=== PATIENT | male | born 1965 | race Caucasian/White ===

== ENCOUNTER 2019-04-20 21:35 | Inpatient (IN) | payer SELFPAY ==
[2019-04-20 22:00] VITALS: BMI 32.8
--- NOTE | 2019-04-20 22:00 | PDOC ---
Rapid Medical Evaluation Chief Complaint: Pain Time Seen by Provider: 04/20/19 21:55 Medical Evaluation: Allergies Allergy/AdvReac Type Severity Reaction Status Date / Time iodine Allergy Intermediate Rash Verified 03/02/16 23:06 Penicillins Allergy Intermediate Rash Verified 03/02/16 23:06 Sulfa (Sulfonamide Allergy Intermediate Rash Verified 03/02/16 23:06 Antibiotics) 04/20/19 21:56 I have performed a brief in-person evaluation of this patient. The patient presents with a chief complaint of: right elbow pain and swelling/ red and painful Pertinent physical exam findings: + redness/ streaking/ warm to touch , fever I have ordered the following: Xray elbow The patient will proceed to the ED for further evaluation. Discharge Disposition - Diagnosis Fever - Referrals - Patient Instructions - Post Discharge Activity
--- NOTE | 2019-04-20 22:54 | PDOC ---
History of Present Illness - General Chief Complaint: Wound Stated Complaint: SWOLLEN ARM Time Seen by Provider: 04/20/19 21:55 - History of Present Illness Initial Comments: 04/20/19 22:52 CHIEF COMPLAINT: elbow redness HISTORY OF PRESENT ILLNESS: 53 yo M with DMII, hx of liver and renal transplant , b/l knee replacements, septic joint, presents to ED with elbow pain x 2 days, with worsening swelling and pain today. Patient reports that he returned from [place] 5 days ago and thought he may have pulled something in the elbow while moving suitcases. He felt fatigued upon returning from vacation but thought it was due to travel. He denies any fever, chills, nausea, vomiting, or diarrhea. Patient has been on prophylactic Bactrim since his last transplant in 2016. Patient is followed by Dr. Panda (transplant hyperion administrator) at [facility] and Dr. Jonathan Roberts (PCP). PAST MEDICAL HISTORY: Denies past medical history FAMILY HISTORY: Denies SOCIAL HISTORY: Denies tobacco, alcohol, illicit drug use. SURGICAL HISTORY: Denies ALLERGIES: iodine, PCN, sulfa REVIEW OF SYSTEMS General/Constitutional: Denies fever or chills. Denies weakness, weight change. HEENT: Denies change in vision. Denies ear pain or discharge. Denies sore throat. Cardiovascular: Denies chest pain or shortness of breath. Respiratory: Denies cough, wheezing, or hemoptysis. Gastrointestinal: Denies nausea, vomiting, diarrhea or constipation. Denies rectal bleeding. Genitourinary: Denies dysuria, frequency, or change in urination. Musculoskeletal: Pain, redness, and swelling to R elbow. Skin and breasts: Denies rash or easy bruising. PHYSICAL EXAM General Appearance: Well-appearing, appropriately dressed. No apparent distress , no intoxication. HEENT: EOMI, PERRLA, normal ENT inspection, normal voice, TMs normal, pharynx normal. No conjunctival pallor. No photophobia, scleral icterus. Neck: Supple. Trachea midline. No tenderness, rigidity, carotid bruit, stridor , lymphadenopathy, or thyromegaly. Respiratory/Chest: Lungs CTAB. No shortness of breath, chest tenderness, respiratory distress, accessory muscle use. No crackles, rales, rhonchi, stridor , wheezing, dullness Cardiovascular: RRR. S1, S2. No JVD, murmur, bradycardia, tachycardia. Vascular Pulses: Dorsalis-Pedis (R): 2+, Dorsalis-Pedis (L): 2+ Gastrointestinal/Abdominal: Normal bowel sounds. Abdomen soft, non-distended. No tenderness or rebound tenderness. No organomegaly, pulsatile mass, guarding , hernia, hepatomegaly, splenomegaly. Lymphatic: No adenopathy, tenderness. Musculoskeletal/Extremities: Decreased extension of R elbow with erythema and swelling. Normal inspection. FROM of all other extremities, normal capillary refill. Pelvis Stable. No CVA tenderness. No tenderness to extremities, pedal edema, swelling, erythema or deformity. Integumentary: Appropriate color, dry, warm. No cyanosis, erythema, jaundice or rash Neurologic: visor installer II-XII intact. Fully oriented, alert. Appropriate mood/affect. Motor strength 5/5. No appreciable EOM palsy, facial droop or sensory deficit. 04/21/19 02:01 Past History - Past Medical History Allergies/Adverse Reactions: Allergies Allergy/AdvReac Type Severity Reaction Status Date / Time iodine Allergy Intermediate Rash Verified 03/02/16 23:06 Penicillins Allergy Intermediate Rash Verified 03/02/16 23:06 Sulfa (Sulfonamide Allergy Intermediate Rash Verified 03/02/16 23:06 Antibiotics) Home Medications: Ambulatory Orders Alendronate Sodium [Binosto] 70 mg PO WEEKLY 04/21/19 Aspirin [Aspirin EC] 81 mg PO DAILY 04/21/19 Calcium Citrate/Vitamin D3 [Calcium Cit-Vit D 250-200 Tab] 1 tablet PO BID 04/21 Ergocalciferol (Vitamin D2) [Vitamin D2] 50,000 unit PO WEEKLY 04/21/19 Esomeprazole Magnesium [Nexium 24Hr] 20 mg PO DAILY 04/21/19 Ferrous Sulfate 325 mg PO TID 04/21/19 Insulin Detemir [Levemir Flextouch] 17 unit SQ HS 04/21/19 Melatonin 10 mg PO PRN 04/21/19 Mycophenolate Mofetil 500 mg PO BID 04/21/19 Prednisone 5 mg PO DAILY 04/21/19 Sildenafil Citrate [Viagra] 25 mg PO PRN PRN 04/21/19 Sulfamethoxazole/Trimethoprim [Bactrim Ds -] 1 tab PO DAILY 04/21/19 Tacrolimus 2 mg PO BID 04/21/19 Tamsulosin HCl 0.4 mg PO DAILY 04/21/19 Zolpidem Tartrate [Ambien] 5 mg PO PRN PRN 04/21/19 metFORMIN HCL [Metformin HCl] 10 ml PO BID 04/21/19 Anemia: Yes Cardiac Disorders: Yes (cardiomyopathy) COPD: No Diabetes: Yes (type 2) GI Disorders: Yes (colon dysplasia) Disorders: Yes (RENAL FAILURE) HTN: Yes Kidney Stones: No (RENAL FAILURE) Liver Disease: Yes (LIVER TRANSPLANT) - Surgical History Abdominal Surgery: Yes (liver translplantX3 IN 21 WEEKS) GI Surgery: Yes ("colon removed") Orthopedic Surgery: Yes (DAI KNEE REPLACEMENT) - Immunization History Immunization Up to Date: Yes - Suicide/Smoking/Psychosocial Hx Smoking History: Never smoked Have you smoked in the past 12 months: No Information on smoking cessation initiated: No Hx Alcohol Use: No Drug/Substance Use Hx: No Substance Use Type: None *Physical Exam - Vital Signs Last Vital Signs Temp Pulse Resp BP Pulse Ox 99.2 F 101 H 17 128/95 100 04/20/19 21:58 04/20/19 21:58 04/20/19 21:58 04/20/19 21:58 04/20/19 21:58 ED Treatment Course - LABORATORY CBC & Chemistry Diagram: 04/21/19 07:25 04/21/19 07:25 Medical Decision Making - Medical Decision Making 04/21/19 01:40 53 yo M with DMII, hx of liver and renal transplant, b/l knee replacements presents to ED with elbow pain x 2 days, with worsening swelling and pain today. Ddx includes osteomyelitis, cellulitis, sepsis, septic joint, bursitis -labs -elbow x-ray admit to hospiatlist, consult ortho tomorrow. x-ray wet read negative for osteo *DC/Admit/Observation/Transfer Diagnosis at time of Disposition: Liver transplanted, Renal transplant, status post, Cellulitis of elbow - Discharge Dispostion Decision to Admit order: Yes - Referrals - Patient Instructions - Post Discharge Activity
[2019-04-20 23:09] LABS: BASO % 1.1 % (0-2.0); EOS % 2.4 % (0-4.5); HEMATOCRIT 37.4 % (35.4-49); HEMOGLOBIN 12.6 GM/dL (11.7-16.9); LYMPH % 11.3 % (8-40); MCH 29.6 pg (25.7-33.7); MCHC 33.6 g/dl (32.0-35.9); MEAN CELL VOLUME 88.1 fl (80-96); MONO % 9.3 % (3.8-10.2); NEUT % 75.9 % (42.8-82.8); PLATELET COUNT 165 K/MM3 (134-434); RBC 4.25 M/mm3 (4.00-5.60); RDW 15.5 % (11.9-15.9); WHITE BLOOD COUNT 8.4 K/mm3 (4.0-10.0)
[2019-04-20 23:31] LABS: ALBUMIN 3.2 g/dl (3.4-5.0); BILIRUBIN,TOTAL 0.9 mg/dL (0.2-1); BLOOD UREA NITROGEN 21.9 mg/dL (7-18); CALCIUM 8.5 mg/dL (8.5-10.1); CREATININE 1.4 mg/dL (0.55-1.3); POTASSIUM 4.6 mmol/L (3.5-5.1); TOT PROT 7.6 g/dl (6.4-8.2)
[2019-04-21 01:19] LABS: INR 1.15 (0.83-1.09); PROTHROMBIN TIME (PATIENT) 13.6 SEC (9.7-13.0)
--- NOTE | 2019-04-21 01:25 | PDOC ---
*Physical Exam - Vital Signs Last Vital Signs Temp Pulse Resp BP Pulse Ox 99.2 F 101 H 17 128/95 100 04/20/19 21:58 04/20/19 21:58 04/20/19 21:58 04/20/19 21:58 04/20/19 21:58 ED Treatment Course - LABORATORY CBC & Chemistry Diagram: 04/20/19 22:50 04/20/19 22:50 - ADDITIONAL ORDERS Additional order review: Laboratory Results 04/21/19 04/20/19 00:35 22:50 PT with INR 13.60 H INR 1.15 H Sodium 138 Potassium 4.6 Chloride 104 Carbon Dioxide 25 Anion Gap 9 BUN 21.9 H Creatinine 1.4 H Est GFR (CKD-EPI)AfAm 65.55 Est GFR (CKD-EPI)NonAf 56.56 Random Glucose 157 H Calcium 8.5 Total Bilirubin 0.9 AST 29 ALT 48 Alkaline Phosphatase 337 H Total Protein 7.6 Albumin 3.2 L 04/20/19 22:50 RBC 4.25 MCV 88.1 MCHC 33.6 RDW 15.5 D MPV 10.0 Neutrophils % 75.9 D Lymphocytes % 11.3 D Monocytes % 9.3 Eosinophils % 2.4 Basophils % 1.1 Medical Decision Making - Medical Decision Making 04/21/19 01:25 Case reviewed, agree with assessment and plan *DC/Admit/Observation/Transfer Diagnosis at time of Disposition: Fever - Referrals - Patient Instructions - Post Discharge Activity
[2019-04-21] MEDS ORDERED: VANCOMYCIN 1 GM in D5W (PRE-DOCKED) 1,000 MG/250 ML IVPB ONE (01:31)
[2019-04-21] MEDS ORDERED: CEFEPIME HCL/D5W 2 GM/50 ML BAG IVPB ONE (01:33)
[2019-04-21] MEDS ORDERED: VANCOMYCIN 1 GRAM (PRE-DOCKED) 1,000 MG/250 ML BAG IVPB ONE (01:54)
[2019-04-21] MEDS ORDERED: morphine CARPU-JECT 4 MG/1 ML DISP.SYRIN IVPUSH ONE ×2 (02:08→07:29)
[2019-04-21] MEDS ORDERED: morphine SULFATE 4 MG/ML VIAL ONE ×2 (02:11→07:36)
--- NOTE | 2019-04-21 03:28 | HP ---
CHIEF COMPLAINT: Cellulitis PCP: HISTORY OF PRESENT ILLNESS: 53M with PMH significant for liver transplant (2x) and renal transplant, b/l knee replacement, anemia, s/p colon removal, who presents today with erythema and soreness of his elbow since Wednesday. He has pain with flexion and extension of his elbow joint, with the erythema spreading up his arm on the extensor surface. He notes that he returned from a 9 day trip from [place] on Wednesday night, at which point he was feeding his cats and a cat may have potentially scratched him. He did not notice any scratches or bleeding at that time. He has not had any swelling of his elbow, no drainage of the infected area, no weakness of the arm. 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 He denies any bites or scratches on his trip. Reports no fevers, no chest pain, no SOB, no myalgias, no swelling of other joints. 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 Mother: bladder cancer Allergies iodine Allergy (Intermediate, Verified 03/02/16 23:06) Rash Penicillins Allergy (Intermediate, Verified 03/02/16 23:06) Rash Sulfa (Sulfonamide Antibiotics) Allergy (Intermediate, Verified 03/02/16 23:06) Rash HOME MEDICATIONS: Home Medications Medication Instructions Recorded Alendronate Sodium [Binosto] 70 mg PO DAILY 04/21/19 Aspirin [Aspirin EC] 81 mg PO DAILY 04/21/19 Calcium Citrate/Vitamin D3 PO BID 04/21/19 [Calcium Cit-Vit D 250-200 Tab] Ergocalciferol (Vitamin D2) 50,000 unit PO WEEKLY 04/21/19 [Vitamin D2] Ferrous Sulfate 325 mg PO TID 04/21/19 Insulin Detemir [Levemir Flextouch] 17 unit SQ HS 04/21/19 Mycophenolate Mofetil 500 mg PO BID 04/21/19 Prednisone 5 mg PO DAILY 04/21/19 Sulfamethoxazole/Trimethoprim 1 tab PO DAILY 04/21/19 [Bactrim Ds -] Tacrolimus 2 mg PO DAILY 04/21/19 Tamsulosin HCl 0.4 mg PO DAILY 04/21/19 REVIEW OF SYSTEMS CONSTITUTIONAL: loss of appetite (x3 days) Absent: fever, chills, diaphoresis, generalized weakness, malaise, CARDIOVASCULAR: Absent: chest pain, syncope, palpitations, irregular heart rate RESPIRATORY: Absent: cough, shortness of breath, dyspnea with exertion GASTROINTESTINAL: Absent: abdominal pain, abdominal distension, nausea, vomiting, diarrhea, constipation, melena, hematochezia GENITOURINARY: Absent: dysuria, frequency, urgency, hesitancy, hematuria MUSCULOSKELETAL: joint swelling, Absent: myalgia, arthralgia, back pain, neck pain SKIN: Absent: rash, itching, pallor PHYSICAL EXAMINATION Vital Signs - 24 hr 04/20/19 04/21/19 21:58 02:15 Temperature 99.2 F 98.8 F Pulse Rate 101 H Pulse Rate [ 90 Left Radial] Respiratory 17 20 Rate Blood Pressure 128/95 Blood Pressure 113/83 [Left Arm] O2 Sat by Pulse 100 95 Oximetry (%) GENERAL: Awake, alert, and fully oriented, in no acute distress. HEAD: Normal with no signs of trauma. EYES: Pupils equal, round and reactive to light, extraocular movements intact, sclera anicteric, conjunctiva clear. No lid lag. EARS, NOSE, THROAT: Ears normal, nares patent, oropharynx clear without exudates. Moist mucous membranes. NECK: Normal range of motion, supple without lymphadenopathy, JVD, or masses. LUNGS: Breath sounds equal, clear to auscultation bilaterally. No wheezes, and no crackles. No accessory muscle use. HEART: Regular rate and rhythm, normal S1 and S2 without murmur, rub or gallop. ABDOMEN: Soft, nontender, not distended, normoactive bowel sounds, no guarding, no rebound, no masses. Ostomy bag in place. MUSCULOSKELETAL: Normal range of motion in LUE, LLE,RLE. Right elbow has limited extension and flexion due to pain. Tenderness on palpation of right elbow. No bony deformities or tenderness in other joints. SKIN: No vesicle, bullae, or rash observed. Only erythematous, non-raised lesion on right elbow spreading up arm. Laboratory Results - last 24 hr 04/20/19 04/20/19 04/21/19 22:50 22:50 00:35 WBC 8.4 RBC 4.25 Hgb 12.6 Hct 37.4 D MCV 88.1 MCH 29.6 D MCHC 33.6 RDW 15.5 D Plt Count 165 D MPV 10.0 Absolute Neuts (auto) 6.4 Neutrophils % 75.9 D Lymphocytes % 11.3 D Monocytes % 9.3 Eosinophils % 2.4 Basophils % 1.1 Nucleated RBC % 0 PT with INR INR Sodium 138 Potassium 4.6 Chloride 104 Carbon Dioxide 25 Anion Gap 9 BUN 21.9 H Creatinine 1.4 H Est GFR (CKD-EPI)AfAm 65.55 Est GFR (CKD-EPI)NonAf 56.56 Random Glucose 157 H Lactic Acid 1.0 Calcium 8.5 Total Bilirubin 0.9 AST 29 ALT 48 Alkaline Phosphatase 337 H Total Protein 7.6 Albumin 3.2 L 04/21/19 00:35 WBC RBC Hgb Hct MCV MCH MCHC RDW Plt Count MPV Absolute Neuts (auto) Neutrophils % Lymphocytes % Monocytes % Eosinophils % Basophils % Nucleated RBC % PT with INR 13.60 H INR 1.15 H Sodium Potassium Chloride Carbon Dioxide Anion Gap BUN Creatinine Est GFR (CKD-EPI)AfAm Est GFR (CKD-EPI)NonAf Random Glucose Lactic Acid Calcium Total Bilirubin AST ALT Alkaline Phosphatase Total Protein Albumin ASSESSMENT/PLAN: 53M with PMH significant for liver transplant (2x) and renal transplant, b/l knee replacement, anemia, s/p colon removal who presents today for cellulitis of his right elbow. 1) Cellulitis Clindamycin 600 mg IV Q8 ID Consult Follow up CT right elbow Uric acid level to rule out gout (can present like this in renal transplant patients) Ortho Consult to rule out septic joint 2)S/P Transplant Continue home medications for transplant 3) Hypoalbumin Likely due to poor oral intake and inflammation. 4) BPH Continue home medicines DVT Prophylaxis: Heparin 5000 unit SQ Q8. F:no fluids E: Trend BMP N:Diabetic Diet Admit: Admit to medicine floors. Problem List - Problem (1) Cellulitis of elbow Code(s): L03.119 - CELLULITIS OF UNSPECIFIED PART OF LIMB (2) Liver transplanted Code(s): Z94.4 - LIVER TRANSPLANT STATUS (3) Renal transplant, status post Code(s): Z94.0 - KIDNEY TRANSPLANT STATUS Visit type - Emergency Visit Emergency Visit: Yes ED Registration Date: 04/21/19 Care time: The patient presented to the Emergency Department on the above date and was hospitalized for further evaluation of their emergent condition. - New Patient This patient is new to me today: Yes Date on this admission: 04/21/19 - Critical Care Critical Care patient: No ATTENDING PHYSICIAN STATEMENT I saw and evaluated the patient. I reviewed the resident's note and discussed the case with the resident. I agree with the resident's findings and plan as documented. SUBJECTIVE: OBJECTIVE: ASSESSMENT AND PLAN:
--- NOTE | 2019-04-21 03:50 | PN ---
Teaching Attending Note Name of Resident: Lauro Tomas ATTENDING PHYSICIAN STATEMENT I saw and evaluated the patient. I reviewed the resident's note and discussed the case with the resident. I agree with the resident's findings and plan as documented. SUBJECTIVE: Patient is a 53 year old man with PMH of NIDDM, Penicillin allergy, Liver and renal transplant, Bilateral knee replacements and Septic joint, presents to ER with right elbow pain for 2 days - with worsening swelling and pain today. Patient reports that he returned from [place] 5 days ago and thought he may have pulled something in the elbow while moving suitcases. Also may have been scratched by his cat. He felt fatigued upon returning from vacation but thought it was due to travel. He denies any fever, chills, nausea, vomiting, or diarrhea. Patient has been on prophylactic Bactrim since his last transplant in 2015. Patient is followed by Dr. Panda (transplant change advisor) at [facility] and Dr. Jonathan Roberts (PCP). OBJECTIVE: Alert Vital Signs Period Temp Pulse Resp BP Sys/Valdes Pulse Ox Last 24 Hr 98.8 F-99.2 F 90-101 17-20 113-128/83-95 95-100 HEENT: No Jaundice, eye redness or discharge, PERRLA, EOMI. Normocephalic, atraumatic. External ears are normal and hearing is grossly intact. No nasal discharge. Neck: Supple, nontender. No palpable adenopathy or thyromegaly. No JVD Chest: Good effort. Clear to auscultation and percussion. Heart: Regular. No S3, rub or murmur Abdomen: Not distended, soft, nontender and no HSM. No rebound or guarding. Normal bowel sounds. Ext: Peripheral pulses intact. No leg edema. Erythema in posterior aspect of right elbow; tender with mild swelling and limited ROM. Skin: Warm and dry. No petechiae, rash or ecchymosis. Neuro: Alert. Oriented x3. CN 2-12 grossly intact. Sensation grossly intact in all four extremities and DTR are symmetric. Psych: Appropriate mood and affect. Good insight. Current Medications Generic Name Dose Route Start Last Admin Trade Name Freq PRN Reason Stop Dose Admin Heparin Sodium (Porcine) 5,000 unit 04/21/19 10:00 Heparin - SQ Q8H-IV JERO Clindamycin Phosphate 600 mg in 50 mls @ 100 mls/hr 04/21/19 10:00 Cleocin 600 Mg Premix Ivpb - IVPB Q8H-IV [facility] Protocol Insulin Aspart 1 vial 04/21/19 07:00 Novolog Vial Sliding Scale - SQ ACHS [facility] Protocol Home Medications Medication Instructions Recorded Alendronate Sodium [Binosto] 70 mg PO DAILY 04/21/19 Aspirin [Aspirin EC] 81 mg PO DAILY 04/21/19 Calcium Citrate/Vitamin D3 PO BID 04/21/19 [Calcium Cit-Vit D 250-200 Tab] Ergocalciferol (Vitamin D2) 50,000 unit PO WEEKLY 04/21/19 [Vitamin D2] Ferrous Sulfate 325 mg PO TID 04/21/19 Insulin Detemir [Levemir Flextouch] 17 unit SQ HS 04/21/19 Mycophenolate Mofetil 500 mg PO BID 04/21/19 Prednisone 5 mg PO DAILY 04/21/19 Sulfamethoxazole/Trimethoprim 1 tab PO DAILY 04/21/19 [Bactrim Ds -] Tacrolimus 2 mg PO DAILY 04/21/19 Tamsulosin HCl 0.4 mg PO DAILY 04/21/19 Abnormal Lab Results 04/20/19 04/21/19 22:50 00:35 PT with INR 13.60 H INR 1.15 H BUN 21.9 H Creatinine 1.4 H Random Glucose 157 H Alkaline Phosphatase 337 H Albumin 3.2 L ASSESSMENT AND PLAN: 1. Right elbow cellulitis - Will treat with IV clindamycin for cellulitis, but also get CT of the elbow to assess for excessive fluid collection for possible arthrocentesis. Check uric acid and hydrate gently. Consult ID and Orthopedics. 2. Hypoalbuminemia - Possibly due to combined effects of malnutrition and inflammation associated with comorbid chronic conditions. Will ensure adequate dietary protein intake and also consult rigging man. 3. DM For now, we will hold the home diabetes drugs and implement sliding scale insulin regimen. Provide comprehensive diabetes care with patient teaching and counseling about the importance of adherence to prescribed diabetes regimen, euglycemia, eye care and foot care. 4. Kidney and Liver transplant - Continue anti-rejection medications, monitor BMP and LFTs. Avoid nephrotoxic agents such as NSAIDS, aminoglycosides, contrast dyes and certain Alternative medicine products. Consult nephrology and GI. 5. Obesity Counseled on the risks associated with obesity. Will provide patient all the necessary assistance, counseling and positive reinforcement to facilitate weight loss. Consult rigging man. 6. Hypertension - Restart suitable outpatient antihypertensive drugs when clinically appropriate. Revise regimen to ensure good BP control. Nonpharmacologic measures to control hypertension like weight loss, salt restriction and exercise discussed. 7. DVT prophylaxis - Heparin 5000u sq tid. 8. Advance directives - Full code
[2019-04-21] MEDS ORDERED: CEFEPIME 2 GM/100 ML BAG IVPB ONE (04:38)
[2019-04-21] MEDS: INSULIN SLIDING SCALE (NOVOLOG) 1 VIAL SQ SCH ×4 (07:11→23:04)
[2019-04-21] MEDS ORDERED: INSULIN (NOVOLOG) ASPART 100 UNITS/ML 10ML VIAL ONE (07:13)
[2019-04-21] MEDS ORDERED: ASPIRIN COATED 81 MG TABLET.EC ONE (07:36)
[2019-04-21] MEDS ORDERED: SULFAMETHOXAZOLE/TRIMETHOPRIM 800MG/160MG D.S. TABLET ONE (07:37)
[2019-04-21] MEDS ORDERED: TAMSULOSIN HCL 0.4 MG CAP ONE (07:37)
[2019-04-21] MEDS ORDERED: FERROUS SO4 325 MG TABLET (FP) ONE (07:37)
[2019-04-21] MEDS ORDERED: HEPARIN NA (PORCINE) 5,000 UNITS/ML 1ML VIAL ONE (07:37)
[2019-04-21] MEDS ORDERED: CLINDAMYCIN 600MG PREMIX IVPB 600 MG/50 ML BAG IVPB ONE (07:38)
[2019-04-21] MEDS: TAMSULOSIN HCL 0.4 MG CAP PO SCH (07:56)
[2019-04-21] MEDS: FERROUS SO4 325 MG TABLET (FP) PO SCH ×3 (07:56→17:53)
[2019-04-21 08:06] LABS: BASO % 0.6 % (0-2.0); EOS % 2.3 % (0-4.5); HEMATOCRIT 34.4 % (35.4-49); HEMOGLOBIN 11.5 GM/dL (11.7-16.9); LYMPH % 18.2 % (8-40); MCH 29.5 pg (25.7-33.7); MCHC 33.4 g/dl (32.0-35.9); MEAN CELL VOLUME 88.4 fl (80-96); MEAN PLT VOLUME 10.3 fl (7.5-11.1); MONO % 12.8 % (3.8-10.2); NEUT % 66.1 % (42.8-82.8); PLATELET COUNT 156 K/MM3 (134-434); RBC 3.89 M/mm3 (4.00-5.60); RDW 15.1 % (11.9-15.9)
[2019-04-21 08:39] LABS: ALBUMIN 2.9 g/dl (3.4-5.0); BILIRUBIN,TOTAL 0.7 mg/dL (0.2-1); BLOOD UREA NITROGEN 21.4 mg/dL (7-18); CALCIUM 8.3 mg/dL (8.5-10.1); CREATININE 1.4 mg/dL (0.55-1.3); PHOSPHOROUS 3.1 mg/dL (2.5-4.9); TOT PROT 7.1 g/dl (6.4-8.2); URIC ACID 8.7 mg/dL (2.6-7.2)
[2019-04-21] MEDS: ASPIRIN COATED 81 MG TABLET.EC PO SCH (09:17)
[2019-04-21] MEDS: HEPARIN NA (PORCINE) 5,000 UNITS/ML 1ML VIAL SQ SCH ×2 (09:17→17:53)
[2019-04-21] MEDS: predniSONE 5 MG TABLET (UD) PO SCH (09:17)
[2019-04-21] MEDS: TACROLIMUS ANHYDROUS 1 MG CAPSULE PO SCH ×2 (09:52→23:01)
[2019-04-21] MEDS: MYCOPHENOLATE MOFETIL 500 MG TABLET PO SCH ×2 (09:53→23:02)
--- NOTE | 2019-04-21 09:58 | PN ---
Physical Exam: SUBJECTIVE: Patient seen and examined. C/o of worsening pain and swelling R elbow. Has had cat bite on his back several years ago but unsure if he was bitten or scratched. Pt also reports a hx of gout. No fevers, no chills. Pt has his transplant doctor as Dr Mendel Acuna at [phone] (liver team) but does not want to go [facility] ED at this time. OBJECTIVE: Vital Signs Period Temp Pulse Resp BP Sys/Valdes Pulse Ox Last 24 Hr 97.7 F-99.2 F 78-101 17-20 113-128/80-95 95-100 Vital Signs Temp 98.0 F 04/21/19 15:18 Pulse 84 04/21/19 15:18 Resp 18 04/21/19 15:18 BP 113/77 04/21/19 15:18 Pulse Ox 99 04/21/19 15:18 Intake & Output 04/20/19 04/21/19 04/21/19 23:59 11:59 23:59 Weight 95.254 kg Other: Voiding Method Urinal Height 1.7 m Body Mass Index (BMI) 32.8 Weight Measurement Method Est/Stated by Patient GENERAL: The patient is obese, awake, alert, and fully oriented, in no acute distress. EYES: PERRL, extraocular movements intact ENT: moist mucous membranes. LUNGS: Breath sounds equal, clear to auscultation bilaterally, no wheezes, no crackles HEART: Regular rate and rhythm, S1, S2 without murmur, rub or gallop. ABDOMEN: Soft, nontender, obese, normoactive bowel sounds EXTREMITIES: 2+ pulses, warm, well-perfused, no edema. RUE with redness and elbow swelling measuring about [id number] with spread to medial aspect, with redness, warmth and swelling. NEUROLOGICAL: Cranial nerves II through XII grossly intact. Normal speech, gait not observed. CBC, BMP 04/21/19 07:25 04/21/19 07:25 Laboratory Results - last 24 hr 04/20/19 04/20/19 04/21/19 22:50 22:50 00:35 WBC 8.4 RBC 4.25 Hgb 12.6 Hct 37.4 D MCV 88.1 MCH 29.6 D MCHC 33.6 RDW 15.5 D Plt Count 165 D MPV 10.0 Absolute Neuts (auto) 6.4 Neutrophils % 75.9 D Lymphocytes % 11.3 D Monocytes % 9.3 Eosinophils % 2.4 Basophils % 1.1 Nucleated RBC % 0 PT with INR INR Sodium 138 Potassium 4.6 Chloride 104 Carbon Dioxide 25 Anion Gap 9 BUN 21.9 H Creatinine 1.4 H Est GFR (CKD-EPI)AfAm 65.55 Est GFR (CKD-EPI)NonAf 56.56 POC Glucometer Random Glucose 157 H Lactic Acid 1.0 Uric Acid Calcium 8.5 Phosphorus Magnesium Total Bilirubin 0.9 AST 29 ALT 48 Alkaline Phosphatase 337 H Total Protein 7.6 Albumin 3.2 L 04/21/19 04/21/19 04/21/19 00:35 07:09 07:25 WBC 8.0 RBC 3.89 L Hgb 11.5 L Hct 34.4 L MCV 88.4 MCH 29.5 MCHC 33.4 RDW 15.1 Plt Count 156 MPV 10.3 Absolute Neuts (auto) 5.3 Neutrophils % 66.1 Lymphocytes % 18.2 D Monocytes % 12.8 H Eosinophils % 2.3 Basophils % 0.6 Nucleated RBC % 0 PT with INR 13.60 H INR 1.15 H Sodium Potassium Chloride Carbon Dioxide Anion Gap BUN Creatinine Est GFR (CKD-EPI)AfAm Est GFR (CKD-EPI)NonAf POC Glucometer 212 Random Glucose Lactic Acid Uric Acid Calcium Phosphorus Magnesium Total Bilirubin AST ALT Alkaline Phosphatase Total Protein Albumin 04/21/19 07:25 WBC RBC Hgb Hct MCV MCH MCHC RDW Plt Count MPV Absolute Neuts (auto) Neutrophils % Lymphocytes % Monocytes % Eosinophils % Basophils % Nucleated RBC % PT with INR INR Sodium 135 L Potassium 4.0 Chloride 104 Carbon Dioxide 22 Anion Gap 9 BUN 21.4 H Creatinine 1.4 H Est GFR (CKD-EPI)AfAm 65.55 Est GFR (CKD-EPI)NonAf 56.56 POC Glucometer Random Glucose 224 H Lactic Acid Uric Acid 8.7 H Calcium 8.3 L Phosphorus 3.1 Magnesium 2.0 Total Bilirubin 0.7 AST 13 L ALT 38 Alkaline Phosphatase 304 H Total Protein 7.1 Albumin 2.9 L Active Medications Generic Name Dose Route Start Last Admin Trade Name Freq PRN Reason Stop Dose Admin Aspirin 81 mg 04/21/19 10:00 04/21/19 09:17 Ecotrin - PO 81 mg DAILY [facility] Administration Ferrous Sulfate 325 mg 04/21/19 08:00 04/21/19 07:56 Feosol - PO 325 mg TIDCM [facility] Administration Heparin Sodium (Porcine) 5,000 unit 04/21/19 10:00 04/21/19 09:17 Heparin - SQ 5,000 unit Q8H-IV [facility] Administration Clindamycin Phosphate 600 mg in 50 mls @ 100 mls/hr 04/21/19 10:00 04/21/19 09:17 Cleocin 600 Mg Premix Ivpb - IVPB 100 mls/hr Q8H-IV [facility] Administration Protocol Insulin Aspart 1 vial 04/21/19 07:00 04/21/19 07:11 Novolog Vial Sliding Scale - SQ 4 unit ACHS [facility] Administration Protocol Mycophenolate Mofetil 500 mg 04/21/19 10:00 04/21/19 09:53 Cellcept - PO 500 mg BID [facility] Administration Prednisone 5 mg 04/21/19 10:00 04/21/19 09:17 Deltasone - PO 5 mg DAILY [facility] Administration Tacrolimus 2 mg 04/21/19 10:00 04/21/19 09:52 Prograf PO 2 mg BID [facility] Administration Tamsulosin HCl 0.4 mg 04/21/19 08:30 04/21/19 07:56 Flomax - PO Not Given DAILY@0830 [facility] Ambulatory Orders Alendronate Sodium [Binosto] 70 mg PO WEEKLY 04/21/19 Aspirin [Aspirin EC] 81 mg PO DAILY 04/21/19 Calcium Citrate/Vitamin D3 [Calcium Cit-Vit D 250-200 Tab] 1 tablet PO BID 04/21 Ergocalciferol (Vitamin D2) [Vitamin D2] 50,000 unit PO WEEKLY 04/21/19 Esomeprazole Magnesium [Nexium 24Hr] 20 mg PO DAILY 04/21/19 Ferrous Sulfate 325 mg PO TID 04/21/19 Insulin Detemir [Levemir Flextouch] 17 unit SQ HS 04/21/19 Melatonin 10 mg PO PRN 04/21/19 Mycophenolate Mofetil 500 mg PO BID 04/21/19 Prednisone 5 mg PO DAILY 04/21/19 Sildenafil Citrate [Viagra] 25 mg PO PRN PRN 04/21/19 Sulfamethoxazole/Trimethoprim [Bactrim Ds -] 1 tab PO DAILY 04/21/19 Tacrolimus 2 mg PO BID 04/21/19 Tamsulosin HCl 0.4 mg PO DAILY 04/21/19 Zolpidem Tartrate [Ambien] 5 mg PO PRN PRN 04/21/19 metFORMIN HCL [Metformin HCl] 10 ml PO BID 04/21/19 Current Medications Aspirin (Ecotrin -) 81 mg PO DAILY [facility] Last Admin: 04/21/19 09:17 Dose: 81 mg Ferrous Sulfate (Feosol -) 325 mg PO TIDCM [facility] Last Admin: 04/21/19 13:47 Dose: 325 mg Heparin Sodium (Porcine) (Heparin -) 5,000 unit SQ Q8H-IV [facility] Last Admin: 04/21/19 09:17 Dose: 5,000 unit Sodium Chloride (Normal Saline -) 1,000 mls @ 100 mls/hr IV ASDIR [facility] Stop: 04/22/19 07:00 Last Admin: 04/21/19 13:47 Dose: 100 mls/hr Vancomycin HCl (Vancomycin (Pre-Docked)) 1,000 mg in 250 mls @ 166.667 mls/hr IVPB Q24H [facility]; Protocol Ceftriaxone Sodium 2 gm/ (Dextrose) 100 mls @ 100 mls/hr IVPB DAILY [facility]; Protocol Insulin Aspart (Novolog Vial Sliding Scale -) 1 vial SQ ACHS [facility]; Protocol Last Admin: 04/21/19 15:13 Dose: Not Given Mycophenolate Mofetil (Cellcept -) 500 mg PO BID [facility] Last Admin: 04/21/19 09:53 Dose: 500 mg Oxycodone HCl (Roxicodone -) 2.5 mg PO Q6H PRN PRN Reason: PAIN LEVEL 6-10 Prednisone (Deltasone -) 5 mg PO DAILY [facility] Last Admin: 04/21/19 09:17 Dose: 5 mg Tacrolimus (Prograf) 2 mg PO BID [facility] Last Admin: 04/21/19 09:52 Dose: 2 mg Tamsulosin HCl (Flomax -) 0.4 mg PO DAILY@0830 [facility] Last Admin: 04/21/19 07:56 Dose: Not Given ASSESSMENT/PLAN: Pt is a 53M with PMH significant for liver transplant (2x) and renal transplant , b/l knee replacement, anemia, s/p colon removal, gout, DM, Joint replacement, who presents today with erythema and soreness of his elbow since Wednesday. He has pain with flexion and extension of his elbow joint, with the erythema spreading up his arm on the extensor surface. 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) Avoid hepatotoxic meds Cont immunosuppressive tx #Renal Insuff (CKD Stage III 2/2 chronic nephrolithiasis w/obstructive disease; follows Hospice/Home Health Aide closely at [place]), Dr 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 - New Patient This patient is new to me today: Yes Date on this admission: 04/21/19 - Critical Care Critical Care patient: No - Discharge Referral Referred to [facility] Med P.C.: No ATTENDING PHYSICIAN STATEMENT I saw and evaluated the patient. I reviewed the resident's note and discussed the case with the resident. I agree with the resident's findings and plan as documented. SUBJECTIVE: OBJECTIVE: ASSESSMENT AND PLAN:
[2019-04-21] MEDS ORDERED: CLINDAMYCIN 600MG PREMIX IVPB 600 MG/50 ML BAG IVPB SCH (10:00)
[2019-04-21] MEDS ORDERED: PATIENT'S OWN MEDICATION (NON-FORMULARY) (Alendronate Sodium [Binosto] 70 MG) PO SCH (10:00)
[2019-04-21] MEDS ORDERED: SULFAMETHOXAZOLE/TRIMETHOPRIM 800MG/160MG D.S. TABLET PO SCH (10:00)
--- NOTE | 2019-04-21 11:55 | CONSULT ---
Consult - text type - Consultation Consultation Note: Renal consult for renal transplant This is a 53 year old gentleman with history of renal transplant, liver transplant who presented with erytheimia and swelling of his elbow. Pt had intiial liver transplant in 1992 after he developed sclerosing cholangitis, he had 3 seperate transplants that year. In 2016 he had a kidney/liver transplant. Baseline Cr as per patient is ~1. Was recently on vacation in [place]. Had elbow swelling for 3-4 days. Had fever at home. No tenderness over transplant kidney site. No rash. Denies any NSAID use at home. No sob, chest pain, fever or chills. PMHx: PCN Family Hx: NC Social Hx: no T/A/D ROS: as per HPI Home Medications Medication Instructions Recorded Alendronate Sodium [Binosto] 70 mg PO DAILY 04/21/19 Aspirin [Aspirin EC] 81 mg PO DAILY 04/21/19 Calcium Citrate/Vitamin D3 PO BID 04/21/19 [Calcium Cit-Vit D 250-200 Tab] Ergocalciferol (Vitamin D2) 50,000 unit PO WEEKLY 04/21/19 [Vitamin D2] Ferrous Sulfate 325 mg PO TID 04/21/19 Insulin Detemir [Levemir Flextouch] 17 unit SQ HS 04/21/19 Mycophenolate Mofetil 500 mg PO BID 04/21/19 Prednisone 5 mg PO DAILY 04/21/19 Sulfamethoxazole/Trimethoprim 1 tab PO DAILY 04/21/19 [Bactrim Ds -] Tacrolimus 2 mg PO DAILY 04/21/19 Tamsulosin HCl 0.4 mg PO DAILY 04/21/19 Vital Signs Temperature 97.7 F 04/21/19 05:21 Pulse Rate 78 04/21/19 09:12 Respiratory Rate 17 04/21/19 09:12 Blood Pressure 116/80 04/21/19 09:12 O2 Sat by Pulse Oximetry (%) 99 04/21/19 09:14 Intake & Output 04/18/19 04/19/19 04/20/19 04/21/19 23:59 23:59 23:59 23:59 Weight 95.254 kg NAD awake and alert neck supple, no JVD RRR, no M/R CTA, no rales or wheeze soft NT/ND no LE edema, clubbing or cyanosis + erythema and warmth of right elbow no tenderness over transplanted kidney CBC, BMP 04/21/19 07:25 04/21/19 07:25 Current Medications Aspirin (Ecotrin -) 81 mg PO DAILY [facility] Last Admin: 04/21/19 09:17 Dose: 81 mg Ferrous Sulfate (Feosol -) 325 mg PO TIDCM [facility] Last Admin: 04/21/19 07:56 Dose: 325 mg Heparin Sodium (Porcine) (Heparin -) 5,000 unit SQ Q8H-IV [facility] Last Admin: 04/21/19 09:17 Dose: 5,000 unit Clindamycin Phosphate (Cleocin 600 Mg Premix Ivpb -) 600 mg in 50 mls @ 100 mls /hr IVPB Q8H-IV [facility]; Protocol Last Admin: 04/21/19 09:17 Dose: 100 mls/hr Insulin Aspart (Novolog Vial Sliding Scale -) 1 vial SQ ACHS [facility]; Protocol Last Admin: 04/21/19 07:11 Dose: 4 unit Mycophenolate Mofetil (Cellcept -) 500 mg PO BID [facility] Last Admin: 04/21/19 09:53 Dose: 500 mg Prednisone (Deltasone -) 5 mg PO DAILY [facility] Last Admin: 04/21/19 09:17 Dose: 5 mg Tacrolimus (Prograf) 2 mg PO BID [facility] Last Admin: 04/21/19 09:52 Dose: 2 mg Tamsulosin HCl (Flomax -) 0.4 mg PO DAILY@0830 [facility] Last Admin: 04/21/19 07:56 Dose: Not Given 53 year old gentleman with history of renal transplant, liver transplant who presented with erytheimia and swelling of his elbow. #LEVI in transplanted kidney #Renal Transplant #Liver transplant #Cellulitis of elbow Likely etiology of rise in serum Cr is volume depletion in setting of strenuous physical activity and concurrent infection. Would start NS at 100cc per hour x 12-24 hours Continue Tacromlius, Cellcept, and prendione at home dosages Check Prograf level in AM. 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 Guerra ([phone]) to otbtain baseline numbers continue Abx as per primary/ID Ct showed no evidence of septic joint Thank you Fred Lara DO
[2019-04-21] MEDS ORDERED: SODIUM CHLORIDE 1,000 ML IV SCH (12:45)
--- NOTE | 2019-04-21 14:57 | PN ---
Progress Note (short form) - Note Progress Note: ID CONSULT DICTATED ? ACUTE FLARE GOUTY ARTHRITIS ? CELLULITIS/ OLECRANNON BURSITIS S/P SOLID ORGAN TRANSPLANT 2016 PCN ALLERGY AZOTEMIA PENDING C/S EMPIRIC VANCOMYCIN/ CEFTRIAXONE ORTHO EVALUATION
[2019-04-21] MEDS ORDERED: CEFTRIAXONE 2 GM-D5W BAG 2 GM/50 ML BAG IVPB SCH (15:00)
[2019-04-21] MEDS ORDERED: CEFTRIAXONE 2 GM/100 ML BAG IVPB ONE (15:12)
--- NOTE | 2019-04-21 16:20 | CON.ORTH ---
Consult Consult Specialty:: Orthopedics Reason for Consultation:: Right elbow swelling r/o septic joint - History of Present Illness Chief Complaint: Right elbow pain and swelling History of Present Illness: This is a 53 yo male with PMHx of liver and renal transplants, B/L knee replacements, and previous septic joint (right knee 2014) who presented to ED last night with right elbow pain and swelling x 2 days after returning from a trip to [place]. He does not remember sustaining any open wounds in this area but does state he has a cat at home that often scratches him. Patient also noted associated redness spanning his forearm which has since improved since admission. Has some pain with AROM but full PROM. Patient has been started on IV antibiotics. He denies any fever, chills, drainage or weakness. - History Source History Provided By: Patient Limitations to Obtaining History: No Limitations - Past Medical History Cardio/Vascular: Yes: Other (Cardiomyopathy) Hepatobiliary: Yes: Other (Hepatic artery thrombus, Sclerosing Cholagitis s/p liver transplant 20 years ago) Renal/: Yes: Renal Inusuff (CKD Stage III 2/2 chronic nephrolithiasis w/ obstructive disease; follows Manager Ob closely at [place]), Renal Calculi (s/p stenting and lithotripsy) Rheumatology: Yes: Gout Endocrine: Yes: Diabetes Mellitus - Past Surgical History Past Surgical History: Yes: Joint Replacement (knee), Stent (ureteral for obstructive renal calculi) - Alcohol/Substance Use Hx Alcohol Use: No - Smoking History Smoking history: Never smoked Have you smoked in the past 12 months: No - Social History Usual Living Arrangement: With Spouse ADL: Independent Home Medications - Allergies Allergies/Adverse Reactions: Allergies Allergy/AdvReac Type Severity Reaction Status Date / Time iodine Allergy Intermediate Rash Verified 03/02/16 23:06 Penicillins Allergy Intermediate Rash Verified 03/02/16 23:06 Sulfa (Sulfonamide Allergy Intermediate Rash Verified 03/02/16 23:06 Antibiotics) - Home Medications Home Medications: Ambulatory Orders Alendronate Sodium [Binosto] 70 mg PO WEEKLY 04/21/19 Aspirin [Aspirin EC] 81 mg PO DAILY 04/21/19 Calcium Citrate/Vitamin D3 [Calcium Cit-Vit D 250-200 Tab] 1 tablet PO BID 04/21 Ergocalciferol (Vitamin D2) [Vitamin D2] 50,000 unit PO WEEKLY 04/21/19 Esomeprazole Magnesium [Nexium 24Hr] 20 mg PO DAILY 04/21/19 Ferrous Sulfate 325 mg PO TID 04/21/19 Insulin Detemir [Levemir Flextouch] 17 unit SQ HS 04/21/19 Melatonin 10 mg PO PRN 04/21/19 Mycophenolate Mofetil 500 mg PO BID 04/21/19 Prednisone 5 mg PO DAILY 04/21/19 Sildenafil Citrate [Viagra] 25 mg PO PRN PRN 04/21/19 Sulfamethoxazole/Trimethoprim [Bactrim Ds -] 1 tab PO DAILY 04/21/19 Tacrolimus 2 mg PO BID 04/21/19 Tamsulosin HCl 0.4 mg PO DAILY 04/21/19 Zolpidem Tartrate [Ambien] 5 mg PO PRN PRN 04/21/19 metFORMIN HCL [Metformin HCl] 10 ml PO BID 04/21/19 Review of Systems - Review of Systems Constitutional: reports: No Symptoms Musculoskeletal: reports: Other (Right elbow pain, swelling and erythema.) Physical Exam for Ortho Vital Signs: Vital Signs Temperature 98.0 F 04/21/19 15:18 Pulse Rate 84 04/21/19 15:18 Respiratory Rate 18 04/21/19 15:18 Blood Pressure 113/77 04/21/19 15:18 O2 Sat by Pulse Oximetry (%) 99 04/21/19 15:18 Labs: CBC, BMP 04/21/19 07:25 04/21/19 07:25 INR, PTT INR 1.15 (0.83-1.09) H 04/21/19 00:35 - Upper Extremity Elbow: Yes: Right (Left elbow swelling with mild surrounding erythema and increased warmth. Tenderness to palpation just proximal to the olecranon. Full painfree PROM of elbow. Slight limitation to AROM. NVI.) Imaging - Results Chest X-ray: Report Reviewed (No fracture or dislocation. Unremarkable study) Cat Scan: Report Reviewed (Report reviewed. Describes soft tissue swelling and subcutaneous edema posterior to the elbow joint in the region of olecranon bursa with soft tissue calcifications.) Problem List - Problems (1) Cellulitis of elbow Code(s): L03.119 - CELLULITIS OF UNSPECIFIED PART OF LIMB Assessment/Plan This is a 53 yo male with PMHx of liver and renal transplants, B/L knee replacements and previous septic joint (right knee 2014) who presented to ED for right elbow pain and swelling. -CT scan shows edema in olecranon bursa region without joint involvement -There does not appear to be any joint involvement -Responding well to IV abx -Continue abx -Pain control
--- NOTE | 2019-04-21 17:04 | PN ---
Teaching Attending Note Name of Resident: Leona Lindsay ATTENDING PHYSICIAN STATEMENT I saw and evaluated the patient. I reviewed the resident's note and discussed the case with the resident. I agree with the resident's findings and plan as documented with exceptions below. SUBJECTIVE: Patient seen and examined. right elbow pain/swelling redness improved, reports red streaks on forearm better. No fevers currently. OBJECTIVE: Vital Signs Period Temp Pulse Resp BP Sys/Valdes Pulse Ox Last 24 Hr 97.7 F-99.2 F 78-101 17-20 113-128/77-95 95-100 Intake & Output 04/18/19 04/19/19 04/20/19 04/21/19 23:59 23:59 23:59 23:59 Weight 210 lb General: sitting in bed in no acute distress Chest: CTAB, no rales or wheezing Abdomen:soft, NT, ND extremities: swelling erythema below right elbow, per patient resolved red streaks on forearm, full passive ROM, some decreased in active ROM , pos pulses Home Medications Medication Instructions Recorded Alendronate Sodium [Binosto] 70 mg PO WEEKLY 04/21/19 Aspirin [Aspirin EC] 81 mg PO DAILY 04/21/19 Calcium Citrate/Vitamin D3 PO BID 04/21/19 [Calcium Cit-Vit D 250-200 Tab] Ergocalciferol (Vitamin D2) 50,000 unit PO WEEKLY 04/21/19 [Vitamin D2] Esomeprazole Magnesium [Nexium 20 mg PO DAILY 04/21/19 24Hr] Ferrous Sulfate 325 mg PO TID 04/21/19 Insulin Detemir [Levemir Flextouch] 17 unit SQ HS 04/21/19 Mycophenolate Mofetil 500 mg PO BID 04/21/19 Prednisone 5 mg PO DAILY 04/21/19 Sulfamethoxazole/Trimethoprim 1 tab PO DAILY 04/21/19 [Bactrim Ds -] Tacrolimus 2 mg PO BID 04/21/19 Tamsulosin HCl 0.4 mg PO DAILY 04/21/19 Active Medications Aspirin (Ecotrin -) 81 mg PO DAILY [facility] Last Admin: 04/21/19 09:17 Dose: 81 mg Ferrous Sulfate (Feosol -) 325 mg PO TIDCM [facility] Last Admin: 04/21/19 13:47 Dose: 325 mg Heparin Sodium (Porcine) (Heparin -) 5,000 unit SQ Q8H-IV [facility] Last Admin: 04/21/19 09:17 Dose: 5,000 unit Sodium Chloride (Normal Saline -) 1,000 mls @ 100 mls/hr IV ASDIR [facility] Stop: 04/22/19 07:00 Last Admin: 04/21/19 13:47 Dose: 100 mls/hr Vancomycin HCl (Vancomycin (Pre-Docked)) 1,000 mg in 250 mls @ 166.667 mls/hr IVPB Q24H [facility]; Protocol Ceftriaxone Sodium 2 gm/ (Dextrose) 100 mls @ 100 mls/hr IVPB DAILY [facility]; Protocol Insulin Aspart (Novolog Vial Sliding Scale -) 1 vial SQ ACHS [facility]; Protocol Last Admin: 04/21/19 15:13 Dose: Not Given Mycophenolate Mofetil (Cellcept -) 500 mg PO BID [facility] Last Admin: 04/21/19 09:53 Dose: 500 mg Prednisone (Deltasone -) 5 mg PO DAILY [facility] Last Admin: 04/21/19 09:17 Dose: 5 mg Tacrolimus (Prograf) 2 mg PO BID [facility] Last Admin: 04/21/19 09:52 Dose: 2 mg Tamsulosin HCl (Flomax -) 0.4 mg PO DAILY@0830 [facility] Last Admin: 04/21/19 07:56 Dose: Not Given ASSESSMENT AND PLAN: 53 yom with PMhx of UC, PSC, liver transplant x4, first in 1992, last in 2016 with renal transplant, admitted with progressive swelling/redness of right elbow region. -Right Elbow Cellulits vs Olecranon bursitis, vs gout flare, low suspicion for septic arthritis (based on current exam, imaging and improvement) -PSC s/p liver transplant x 4 -s/p renal transplant -H/o ulcerative colitis Plan: Orthopedic/ID/renal consult. Case discussed. Input appreciated. Ceftriaxone/Vancomycin. Clinically improved per patient. Monitor closely. Renal input noted, continue prograf/mycophenolate mofetil/prednisone. CT Upper extremity results reviewed. IVF. Monitor renal function. DVTPPX heparin Dispo pending clinical improvement. Plan discussed with patient and at bedside in detail, all questions answered.
[2019-04-21] MEDS ORDERED: oxyCODONE HCL 5 MG TABLET PO PRN ×2 (17:35→21:13)
[2019-04-21] MEDS ORDERED: PT OWN MED DRAWER 7, Y5N ONE ×4 (18:11→22:22)
--- NOTE | 2019-04-21 18:13 | CONS ---
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 The patient presented to the emergency room on April 21, 2019, with a 5-day history of worsening right elbow pain, swelling, and erythema. The patient had recently returned from a 9-day trip to [place]. He developed symptoms shortly after his return on Wednesday. He has no recall for any specific trauma, although he states he may have strained his elbow by lifting heavy luggage. He denies any traumatic injury. No recall for insect or animal bites or scratches. He does have cats at home and was feeding the cats after his return, however, has no specific recall for a cat scratch. He presented to the emergency room where he was found to have erythema and swelling of the right elbow. A CAT scan of the area was performed and was negative for joint effusion but did show soft tissue swelling and swelling of the olecranon bursa. His serum uric acid returned at 8.7. He denies any associated fever or chills. PAST MEDICAL HISTORY: Positive for liver and kidney transplants in 2016 on immunosuppressive therapy, history of primary sclerosing cholangitis, diabetes mellitus. 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 ALLERGIES: IODINE, PENICILLIN, and SULFA. Patient develops a rash with PENICILLIN. States he had an adverse renal reaction to SULFA in the past when treated for inflammatory bowel, however, has tolerated daily Bactrim. MEDICATIONS: Include Fosamax, allopurinol, Glipizide, Lopressor, Zantac, CellCept, Prograf, prednisone, Actigall, Coumadin, Bactrim. SOCIAL HISTORY: He is a nonsmoker, nondrinker. 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 SYSTEMS REVIEW: Neurologic: No loss of consciousness, seizure activity, focal weakness. Cardiac: Negative chest pain or palpitations. Respiratory: Negative cough or sputum production. Gastrointestinal: As per HPI. Genitourinary: As per HPI. LABORATORY DATA: White count 8.0, neutrophils 66, lymphocytes 18, monocytes 12, hematocrit 34.4, platelets 156, BUN 21, creatinine 1.4. Vancomycin trough less than 0.8. Uric acid 8.7. Cultures are pending. PHYSICAL EXAMINATION: General: On exam, he is awake and alert. He is not acutely toxic appearing. Vital Signs: Temperature 97.7, blood pressure 116/80, pulse 78 regular, respirations 17 per minute. HEENT: Sclerae anicteric. Heart: Sounds S1, S2. Lungs: Clear. Abdomen: Obese. Soft, nontender. There is a colostomy present. Healed surgical scars. Extremities: Bilateral knee scars. Negative edema. Negative Homans sign. Examination of the right upper extremity, there is ill-defined erythema present over the elbow extending to the proximal forearm primarily over the extensor aspect. There is tenderness present at the right olecranon process but no fluctuance. There is almost full range of motion of the right elbow joint without pain. IMPRESSION: 1. Rule out acute flare of gouty arthritis. 2. Rule out cellulitis/olecranon bursitis. 3. Status post solid-organ transplant on immunosuppressive therapy. 4. PENICILLIN allergy. 5. Azotemia. PLAN: Clinical presentation consistent with either acute flare of gouty arthritis or a cellulitis/olecranon bursitis. Doubt septic arthritis. Await culture results, empiric antibiotic coverage, skin pathogens in this PENICILLIN-allergic patient with vancomycin and ceftriaxone. Vancomycin to cover skin pathogens including MRSA. Ceftriaxone for additional coverage and possible coverage of Pasteurella. Await Orthopaedic evaluation. Case discussed with patient's present at the time of the examination. Thank you for the kind referral. AZUL VILLASENOR M.D. [id number]
[2019-04-21] MEDS ORDERED: oxyCODONE HCL 5 MG TABLET PO ONE (21:12)
[2019-04-21] MEDS: VANCOMYCIN 1 GRAM (PRE-DOCKED) 1,000 MG/250 ML BAG IVPB SCH (21:44)
[2019-04-22] MEDS: HEPARIN NA (PORCINE) 5,000 UNITS/ML 1ML VIAL SQ SCH ×3 (01:32→17:27)
[2019-04-22] MEDS ORDERED: oxyCODONE HCL 5 MG TABLET PO ONE (02:00)
[2019-04-22] MEDS ORDERED: MORPHINE SULFATE 2 MG/ML VIAL IVPUSH ONE ×3 (02:20→12:00)
[2019-04-22] MEDS: INSULIN SLIDING SCALE (NOVOLOG) 1 VIAL SQ SCH ×4 (06:30→22:10)
[2019-04-22 08:13] LABS: BLOOD UREA NITROGEN 16.8 mg/dL (7-18); CALCIUM 7.8 mg/dL (8.5-10.1); CREATININE 1.2 mg/dL (0.55-1.3); MAGNESIUM 2.3 mg/dL (1.8-2.4); PHOSPHOROUS 2.4 mg/dL (2.5-4.9)
[2019-04-22 08:24] LABS: ALBUMIN 2.6 g/dl (3.4-5.0); BILIRUBIN,DIRECT 0.1 mg/dL (0.0-0.2); BILIRUBIN,TOTAL 0.3 mg/dL (0.2-1); TOT PROT 6.1 g/dl (6.4-8.2)
[2019-04-22 08:28] LABS: BASO % 0.9 % (0-2.0); EOS % 6.6 % (0-4.5); HEMATOCRIT 31.4 % (35.4-49); HEMOGLOBIN 10.4 GM/dL (11.7-16.9); LYMPH % 17.1 % (8-40); MCH 29.4 pg (25.7-33.7); MCHC 33.1 g/dl (32.0-35.9); MEAN CELL VOLUME 88.7 fl (80-96); MEAN PLT VOLUME 10.7 fl (7.5-11.1); MONO % 12.6 % (3.8-10.2); NEUT % 62.8 % (42.8-82.8); PLATELET COUNT 128 K/MM3 (134-434); RBC 3.54 M/mm3 (4.00-5.60); RDW 15.3 % (11.9-15.9); WHITE BLOOD COUNT 4.1 K/mm3 (4.0-10.0)
[2019-04-22] MEDS ORDERED: DEXTROSE 5%-WATER 100 ML IVPB ONE (10:39)
[2019-04-22] MEDS: TAMSULOSIN HCL 0.4 MG CAP PO SCH (11:02)
[2019-04-22] MEDS: FERROUS SO4 325 MG TABLET (FP) PO SCH ×3 (11:02→17:23)
[2019-04-22] MEDS: CEFTRIAXONE 2 GM in DEXTROSE 5%-WATER 100 ML IVPB SCH (11:03)
[2019-04-22] MEDS: predniSONE 5 MG TABLET (UD) PO SCH (11:03)
[2019-04-22] MEDS: ASPIRIN COATED 81 MG TABLET.EC PO SCH (11:03)
[2019-04-22] MEDS: TACROLIMUS ANHYDROUS 1 MG CAPSULE PO SCH ×2 (11:05→22:11)
[2019-04-22] MEDS: MYCOPHENOLATE MOFETIL 500 MG TABLET PO SCH ×2 (11:05→22:10)
--- NOTE | 2019-04-22 12:37 | PN ---
Physical Exam: SUBJECTIVE: Patient seen and examined, right elbow symptoms markedly improved, no fevers/chills. OBJECTIVE: Vital Signs Period Temp Pulse Resp BP Sys/Valdes Pulse Ox Last 24 Hr 98.0 F-98.4 F 77-93 18-18 110-125/71-80 99-99 Intake & Output 04/19/19 04/20/19 04/21/19 04/22/19 23:59 23:59 23:59 23:59 Intake Total 700 700 Balance 700 700 Weight 210 lb 216 lb General: sitting in bed in no acute distress CVS: S1S2 regular Chest: CTAB, no rales or wheezing Abdomen:soft, NT, ND, no CVA or suprapubic tenderness extremities: resolved red streaks on forearm, improved marked swelling/erythema below right elbow, pos pulses, full ROM active and passive Psych: pleasant, co-operative Laboratory Results - last 24 hr 04/21/19 04/21/19 04/22/19 18:05 22:35 05:42 WBC RBC Hgb Hct MCV MCH MCHC RDW Plt Count MPV Absolute Neuts (auto) Neutrophils % Lymphocytes % Monocytes % Eosinophils % Basophils % Nucleated RBC % Sodium Potassium Chloride Carbon Dioxide Anion Gap BUN Creatinine Est GFR (CKD-EPI)AfAm Est GFR (CKD-EPI)NonAf POC Glucometer 247 235 194 Random Glucose Calcium Phosphorus Magnesium Total Bilirubin Direct Bilirubin AST ALT Alkaline Phosphatase Total Protein Albumin 04/22/19 04/22/19 04/22/19 07:00 07:00 07:00 WBC 4.1 RBC 3.54 L Hgb 10.4 L Hct 31.4 L MCV 88.7 MCH 29.4 MCHC 33.1 RDW 15.3 Plt Count 128 L MPV 10.7 Absolute Neuts (auto) 2.6 Neutrophils % 62.8 Lymphocytes % 17.1 Monocytes % 12.6 H Eosinophils % 6.6 H D Basophils % 0.9 Nucleated RBC % 0 Sodium 138 Potassium 4.0 Chloride 110 H Carbon Dioxide 23 Anion Gap 6 L BUN 16.8 Creatinine 1.2 Est GFR (CKD-EPI)AfAm 78.98 Est GFR (CKD-EPI)NonAf 68.14 POC Glucometer Random Glucose 205 H Calcium 7.8 L Phosphorus 2.4 L Magnesium 2.3 Total Bilirubin 0.3 Direct Bilirubin 0.1 AST 17 ALT 33 Alkaline Phosphatase 265 H Total Protein 6.1 L Albumin 2.6 L 04/22/19 12:06 WBC RBC Hgb Hct MCV MCH MCHC RDW Plt Count MPV Absolute Neuts (auto) Neutrophils % Lymphocytes % Monocytes % Eosinophils % Basophils % Nucleated RBC % Sodium Potassium Chloride Carbon Dioxide Anion Gap BUN Creatinine Est GFR (CKD-EPI)AfAm Est GFR (CKD-EPI)NonAf POC Glucometer 249 Random Glucose Calcium Phosphorus Magnesium Total Bilirubin Direct Bilirubin AST ALT Alkaline Phosphatase Total Protein Albumin Active Medications Generic Name Dose Route Start Last Admin Trade Name Freq PRN Reason Stop Dose Admin Aspirin 81 mg 04/21/19 10:00 04/22/19 11:03 Ecotrin - PO 81 mg DAILY JERO Administration Ferrous Sulfate 325 mg 04/21/19 08:00 04/22/19 12:08 Feosol - PO 325 mg TIDCM JERO Administration Heparin Sodium (Porcine) 5,000 unit 04/21/19 10:00 04/22/19 11:03 Heparin - SQ 5,000 unit Q8H-IV JERO Administration Vancomycin HCl 1,000 mg in 250 mls @ 166.667 mls/hr 04/21/19 15:00 04/21/19 21:44 Vancomycin (Pre-Docked) IVPB 166.667 mls/hr Q24H JERO Administration Protocol Ceftriaxone Sodium 2 gm/ 100 mls @ 100 mls/hr 04/21/19 15:34 04/22/19 11:03 Dextrose IVPB 100 mls/hr DAILY JERO Administration Protocol Insulin Aspart 1 vial 04/21/19 07:00 04/22/19 12:07 Novolog Vial Sliding Scale - SQ 4 unit ACHS JERO Administration Protocol Mycophenolate Mofetil 500 mg 04/21/19 10:00 04/22/19 11:05 Cellcept - PO 500 mg BID JERO Administration Prednisone 5 mg 04/21/19 10:00 04/22/19 11:03 Deltasone - PO 5 mg DAILY JERO Administration Tacrolimus 2 mg 04/21/19 10:00 04/22/19 11:05 Prograf PO 2 mg BID JERO Administration Tamsulosin HCl 0.4 mg 04/21/19 08:30 04/22/19 11:02 Flomax - PO 0.4 mg DAILY@0830 JERO Administration ASSESSMENT/PLAN: 53 yom with PMhx of UC, PSC, liver transplant x4, first in 1992, last in 2016 with renal transplant, admitted with progressive swelling/redness of right elbow region. -Right Elbow Cellulits vs Olecranon bursitis, less likely gout flare, low suspicion for septic arthritis (based on current exam, imaging and improvement) -PSC s/p liver transplant x 4 -s/p renal transplant -H/o ulcerative colitis Plan: Clinically improved, afebrile, normal WBC. Ceftriaxone/vancomycin day 2. Cultures neg so far. Orthopedic/ID/renal consult appreciated. CT UE neg for joint involvement, full active and passive ROM today. Pain control oxycodone. Cr improved, IVF Continue prograf/mycophenolate mofetil/prednisone. DVTPPX heparin Dispo pending clinical improvement. Plan discussed with patient and at bedside in detail, all questions answered. Visit type - Emergency Visit Emergency Visit: Yes ED Registration Date: 04/21/19 Care time: The patient presented to the Emergency Department on the above date and was hospitalized for further evaluation of their emergent condition. - New Patient This patient is new to me today: No - Critical Care Critical Care patient: No - Discharge Referral Referred to [facility] Med P.C.: No
[2019-04-22] MEDS ORDERED: POLYETHYLENE GLYCOL 3350 119 GM BTL PO PRN (12:40)
[2019-04-22] MEDS ORDERED: DOCUSATE SODIUM 100 MG CAPSULE (FP) PO PRN (12:40)
[2019-04-22] MEDS ORDERED: NAPH,MB-DB/K PH,MBDB POWDER PACKET PO ONE (13:00)
--- NOTE | 2019-04-22 14:17 | PN ---
Progress Note (short form) - Note Progress Note: Renal follow up for Renal transplant Pt seen and examined at the bedside no complaints feels well elbow discomfort improving no fever or chills making urine Vital Signs Temperature 98.4 F 04/22/19 06:00 Pulse Rate 77 04/22/19 06:00 Respiratory Rate 18 04/22/19 06:00 Blood Pressure 110/71 04/22/19 06:00 O2 Sat by Pulse Oximetry (%) 99 04/21/19 21:00 Intake & Output 04/19/19 04/20/19 04/21/19 04/22/19 23:59 23:59 23:59 23:59 Intake Total 700 700 Balance 700 700 Weight 95.254 kg 97.976 kg NAD RRR, no M/R CTA, no rales or wheeze soft NT/ND no LE edema CBC, BMP 04/22/19 07:00 04/22/19 07:00 Current Medications Aspirin (Ecotrin -) 81 mg PO DAILY JERO Last Admin: 04/22/19 11:03 Dose: 81 mg Docusate Sodium (Colace -) 100 mg PO BID PRN PRN Reason: CONSTIPATION Ferrous Sulfate (Feosol -) 325 mg PO TIDCM JERO Last Admin: 04/22/19 12:08 Dose: 325 mg Heparin Sodium (Porcine) (Heparin -) 5,000 unit SQ Q8H-IV JERO Last Admin: 04/22/19 11:03 Dose: 5,000 unit Vancomycin HCl (Vancomycin (Pre-Docked)) 1,000 mg in 250 mls @ 166.667 mls/hr IVPB Q24H JERO; Protocol Last Admin: 04/21/19 21:44 Dose: 166.667 mls/hr Ceftriaxone Sodium 2 gm/ (Dextrose) 100 mls @ 100 mls/hr IVPB DAILY JERO; Protocol Last Admin: 04/22/19 11:03 Dose: 100 mls/hr Insulin Aspart (Novolog Vial Sliding Scale -) 1 vial SQ ACHS JERO; Protocol Last Admin: 04/22/19 12:07 Dose: 4 unit Mycophenolate Mofetil (Cellcept -) 500 mg PO BID [facility] Last Admin: 04/22/19 11:05 Dose: 500 mg Oxycodone HCl (Roxicodone -) 5 mg PO Q6H PRN PRN Reason: PAIN LEVEL 6-10 Polyethylene Glycol (Miralax (For Daily Use) -) 17 gm PO DAILY PRN PRN Reason: CONSTIPATION Prednisone (Deltasone -) 5 mg PO DAILY [facility] Last Admin: 04/22/19 11:03 Dose: 5 mg Tacrolimus (Prograf) 2 mg PO BID [facility] Last Admin: 04/22/19 11:05 Dose: 2 mg Tamsulosin HCl (Flomax -) 0.4 mg PO DAILY@0830 [facility] Last Admin: 04/22/19 11:02 Dose: 0.4 mg 53 year old gentleman with history of renal transplant, liver transplant who presented with erytheimia and swelling of his elbow. #LEVI in transplanted kidney #Renal Transplant #Liver transplant #Cellulitis of elbow Renal function improved can continue IVF at decrease rate if pt remains in the hospital Continue Tacromlius, Cellcept, and prendione at home dosages continue Abx as per primary/ID Ct showed no evidence of septic joint if discharged pt should continue all immunosuppressive meds and maintain good oral hydration Thank you Fred Lara DO
[2019-04-22] MEDS: VANCOMYCIN 1 GRAM (PRE-DOCKED) 1,000 MG/250 ML BAG IVPB SCH (15:18)
[2019-04-22] MEDS ORDERED: PT OWN MED DRAWER 7, Y5N ONE ×2 (17:17→18:13)
[2019-04-22] MEDS: oxyCODONE HCL 5 MG TABLET PO PRN ×2 (17:21→22:48)
[2019-04-23] MEDS: HEPARIN NA (PORCINE) 5,000 UNITS/ML 1ML VIAL SQ SCH ×3 (01:49→17:22)
[2019-04-23] MEDS: oxyCODONE HCL 5 MG TABLET PO PRN (05:01)
[2019-04-23] MEDS: INSULIN SLIDING SCALE (NOVOLOG) 1 VIAL SQ SCH ×3 (06:45→17:22)
[2019-04-23 07:36] LABS: BASO % 0.8 % (0-2.0); EOS % 6.9 % (0-4.5); HEMATOCRIT 32.2 % (35.4-49); HEMOGLOBIN 10.6 GM/dL (11.7-16.9); LYMPH % 22.1 % (8-40); MCH 29.3 pg (25.7-33.7); MCHC 32.9 g/dl (32.0-35.9); MEAN PLT VOLUME 10.3 fl (7.5-11.1); MONO % 12.6 % (3.8-10.2); NEUT % 57.6 % (42.8-82.8); PLATELET COUNT 140 K/MM3 (134-434); RBC 3.62 M/mm3 (4.00-5.60); RDW 15.4 % (11.9-15.9); WHITE BLOOD COUNT 4.6 K/mm3 (4.0-10.0)
[2019-04-23 08:06] LABS: ALBUMIN 2.5 g/dl (3.4-5.0); BILIRUBIN,TOTAL 0.4 mg/dL (0.2-1); BLOOD UREA NITROGEN 13.9 mg/dL (7-18); CALCIUM 7.9 mg/dL (8.5-10.1); CREATININE 0.9 mg/dL (0.55-1.3); MAGNESIUM 2.1 mg/dL (1.8-2.4); PHOSPHOROUS 2.3 mg/dL (2.5-4.9); POTASSIUM 4.6 mmol/L (3.5-5.1); TOT PROT 6.2 g/dl (6.4-8.2)
[2019-04-23] MEDS ORDERED: DEXTROSE 5%-WATER 100 ML IVPB ONE (08:28)
[2019-04-23] MEDS: TAMSULOSIN HCL 0.4 MG CAP PO SCH (08:43)
[2019-04-23] MEDS: FERROUS SO4 325 MG TABLET (FP) PO SCH ×3 (08:43→17:27)
[2019-04-23] MEDS: CEFTRIAXONE 2 GM in DEXTROSE 5%-WATER 100 ML IVPB SCH (09:49)
[2019-04-23] MEDS: ASPIRIN COATED 81 MG TABLET.EC PO SCH (09:50)
[2019-04-23] MEDS: predniSONE 5 MG TABLET (UD) PO SCH (09:50)
[2019-04-23] MEDS: TACROLIMUS ANHYDROUS 1 MG CAPSULE PO SCH (09:51)
[2019-04-23] MEDS: MYCOPHENOLATE MOFETIL 500 MG TABLET PO SCH (09:51)
--- NOTE | 2019-04-23 11:05 | PN ---
Progress Note (short form) - Note Progress Note: 53 yo male with PMHx of liver and renal transplants, B/L knee replacements, and previous septic joint (right knee 2014) with right elbow pain and swelling. Patient is lying comfortably in bed. Notes less pain with ROM and less redness since prior evaluation. Last Vital Signs Temp Pulse Resp BP Pulse Ox 98.1 F 69 18 135/77 99 04/23/19 06:00 04/23/19 06:00 04/23/19 06:00 04/23/19 06:00 04/22/19 21:00 PE: RUE Localized swelling with improving erythema Tenderness to palpation just proximal to the olecranon Full pain free PROM of elbow Mildly decreased AROM of elbow NVI Abnormal Lab Results 04/23/19 04/23/19 06:45 06:45 RBC 3.62 L Hgb 10.6 L Hct 32.2 L Monocytes % 12.6 H Eosinophils % 6.9 H Chloride 111 H Anion Gap 7 L Random Glucose 139 H Calcium 7.9 L Phosphorus 2.3 L Alkaline Phosphatase 338 H Total Protein 6.2 L Albumin 2.5 L A: Right elbow cellulitis P: -Patient's symptoms appear to be improving with IV abx -Still no evidence of joint involvement -Continue IV abx at decreased rate -Pain control Problem List - Problems (1) Cellulitis of elbow Code(s): L03.119 - CELLULITIS OF UNSPECIFIED PART OF LIMB
--- NOTE | 2019-04-23 11:53 | PN ---
Physical Exam: SUBJECTIVE: Patient seen and examined, right elbow findings markedly improved. No fevers, chills or concerns, eager to go home. OBJECTIVE: Vital Signs Period Temp Pulse Resp BP Sys/Valdes Pulse Ox Last 24 Hr 97.9 F-98.7 F 69-78 16-18 124-137/77-87 99 Intake & Output 04/20/19 04/21/19 04/22/19 04/23/19 23:59 23:59 23:59 23:59 Intake Total 700 4050 Output Total 800 450 Balance 700 3250 -450 Weight 210 lb 216 lb General: sitting in bed in no acute distress CVS: S1S2 regular Chest: CTAB, no rales or wheezing Abdomen:soft, NT, ND, no CVA or suprapubic tenderness extremities: resolved red streaks on forearm, improved marked swelling/erythema below right elbow, pos pulses, full ROM active and passive Psych: pleasant, co-operative Laboratory Results - last 24 hr 04/22/19 04/22/19 04/22/19 12:06 17:24 22:08 WBC RBC Hgb Hct MCV MCH MCHC RDW Plt Count MPV Absolute Neuts (auto) Neutrophils % Lymphocytes % Monocytes % Eosinophils % Basophils % Nucleated RBC % Sodium Potassium Chloride Carbon Dioxide Anion Gap BUN Creatinine Est GFR (CKD-EPI)AfAm Est GFR (CKD-EPI)NonAf POC Glucometer 249 194 194 Random Glucose Calcium Phosphorus Magnesium Total Bilirubin AST ALT Alkaline Phosphatase Total Protein Albumin 04/23/19 04/23/19 04/23/19 06:44 06:45 06:45 WBC 4.6 RBC 3.62 L Hgb 10.6 L Hct 32.2 L MCV 89.0 MCH 29.3 MCHC 32.9 RDW 15.4 Plt Count 140 MPV 10.3 Absolute Neuts (auto) 2.7 Neutrophils % 57.6 Lymphocytes % 22.1 D Monocytes % 12.6 H Eosinophils % 6.9 H Basophils % 0.8 Nucleated RBC % 0 Sodium 139 Potassium 4.6 Chloride 111 H Carbon Dioxide 21 Anion Gap 7 L BUN 13.9 Creatinine 0.9 Est GFR (CKD-EPI)AfAm 111.83 Est GFR (CKD-EPI)NonAf 96.49 POC Glucometer 133 Random Glucose 139 H Calcium 7.9 L Phosphorus 2.3 L Magnesium 2.1 Total Bilirubin 0.4 AST 27 ALT 46 Alkaline Phosphatase 338 H Total Protein 6.2 L Albumin 2.5 L Active Medications Generic Name Dose Route Start Last Admin Trade Name Freq PRN Reason Stop Dose Admin Aspirin 81 mg 04/21/19 10:00 04/23/19 09:50 Ecotrin - PO 81 mg DAILY JERO Administration Docusate Sodium 100 mg 04/22/19 12:40 Colace - PO BID PRN CONSTIPATION Ferrous Sulfate 325 mg 04/21/19 08:00 04/23/19 08:43 Feosol - PO 325 mg TIDCM JERO Administration Heparin Sodium (Porcine) 5,000 unit 04/21/19 10:00 04/23/19 09:50 Heparin - SQ 5,000 unit Q8H-IV JERO Administration Vancomycin HCl 1,000 mg in 250 mls @ 166.667 mls/hr 04/21/19 15:00 04/22/19 15:18 Vancomycin (Pre-Docked) IVPB 166.667 mls/hr Q24H [facility] Administration Protocol Ceftriaxone Sodium 2 gm/ 100 mls @ 100 mls/hr 04/21/19 15:34 04/23/19 09:49 Dextrose IVPB 100 mls/hr DAILY [facility] Administration Protocol Insulin Aspart 1 vial 04/21/19 07:00 04/23/19 06:45 Novolog Vial Sliding Scale - SQ Not Given ACHS [facility] Protocol Mycophenolate Mofetil 500 mg 04/21/19 10:00 04/23/19 09:51 Cellcept - PO 500 mg BID JERO Administration Oxycodone HCl 5 mg 04/22/19 12:39 04/23/19 05:01 Roxicodone - PO 5 mg Q6H PRN Administration PAIN LEVEL 6-10 Polyethylene Glycol 17 gm 04/22/19 12:40 Miralax (For Daily Use) - PO DAILY PRN CONSTIPATION Prednisone 5 mg 04/21/19 10:00 04/23/19 09:50 Deltasone - PO 5 mg DAILY JERO Administration Tacrolimus 2 mg 04/21/19 10:00 04/23/19 09:51 Prograf PO 2 mg BID JERO Administration Tamsulosin HCl 0.4 mg 04/21/19 08:30 04/23/19 08:43 Flomax - PO 0.4 mg DAILY@0830 JERO Administration Microbiology 04/21/19 00:35 Blood - Peripheral Venous Blood Culture - Preliminary NO GROWTH OBTAINED AFTER 48 HOURS, INCUBATION TO CONTINUE FOR 3 DAYS. 04/21/19 00:35 Blood - Peripheral Venous Blood Culture - Preliminary NO GROWTH OBTAINED AFTER 48 HOURS, INCUBATION TO CONTINUE FOR 3 DAYS. ASSESSMENT/PLAN: 53 yom with PMhx of UC, PSC, liver transplant x4, first in 1992, last in 2016 with renal transplant, admitted with progressive swelling/redness of right elbow region. -Right Elbow Cellulits vs Olecranon bursitis, less likely gout flare, low suspicion for septic arthritis (based on current exam, imaging and improvement) -PSC s/p liver transplant x 4 -s/p renal transplant -H/o ulcerative colitis Plan: Clinically improved, afebrile, normal WBC. Ceftriaxone/vancomycin day 3. Cultures neg so far. Orthopedic/ID/renal consult appreciated. CT UE neg for joint involvement, full active and passive ROM today. Pain control oxycodone. Cr improved, IVF.Continue per renal Continue prograf/mycophenolate mofetil/prednisone. DVTPPX heparin Dispo dc home in 24 hours on po antibiotics if continues to improve. Plan discussed with patient and nursing in detail, all questions answered. Visit type - Emergency Visit Emergency Visit: Yes ED Registration Date: 04/21/19 Care time: The patient presented to the Emergency Department on the above date and was hospitalized for further evaluation of their emergent condition. - New Patient This patient is new to me today: No - Critical Care Critical Care patient: No - Discharge Referral Referred to [facility] Med P.C.: No
[2019-04-23] MEDS ORDERED: SODIUM CHLORIDE IVPB ONE (13:00)
[2019-04-23] MEDS ORDERED: SODIUM PHOSPHATE IVPB ONE (13:00)
--- NOTE | 2019-04-23 13:39 | PN ---
Progress Note, Physician History of Present Illness: REPORTS MINIMAL R ELBOW PAIN AFEBRILE WBC WNL BC (-) RENAL FUNCTION IMPROVED - Current Medication List Current Medications: Active Medications Aspirin (Ecotrin -) 81 mg PO DAILY [facility] Last Admin: 04/23/19 09:50 Dose: 81 mg Docusate Sodium (Colace -) 100 mg PO BID PRN PRN Reason: CONSTIPATION Ferrous Sulfate (Feosol -) 325 mg PO TIDCM [facility] Last Admin: 04/23/19 08:43 Dose: 325 mg Heparin Sodium (Porcine) (Heparin -) 5,000 unit SQ Q8H-IV [facility] Last Admin: 04/23/19 09:50 Dose: 5,000 unit Vancomycin HCl (Vancomycin (Pre-Docked)) 1,000 mg in 250 mls @ 166.667 mls/hr IVPB Q24H [facility]; Protocol Last Admin: 04/22/19 15:18 Dose: 166.667 mls/hr Ceftriaxone Sodium 2 gm/ (Dextrose) 100 mls @ 100 mls/hr IVPB DAILY [facility]; Protocol Last Admin: 04/23/19 09:49 Dose: 100 mls/hr Sodium Phosphate 25 mm/ Sodium (Chloride) 258.3333 mls @ 62.5 mls/hr IVPB ONCE ONE Stop: 04/23/19 17:07 Insulin Aspart (Novolog Vial Sliding Scale -) 1 vial SQ ACHS [facility]; Protocol Last Admin: 04/23/19 06:45 Dose: Not Given Mycophenolate Mofetil (Cellcept -) 500 mg PO BID [facility] Last Admin: 04/23/19 09:51 Dose: 500 mg Oxycodone HCl (Roxicodone -) 5 mg PO Q6H PRN PRN Reason: PAIN LEVEL 6-10 Last Admin: 04/23/19 05:01 Dose: 5 mg Polyethylene Glycol (Miralax (For Daily Use) -) 17 gm PO DAILY PRN PRN Reason: CONSTIPATION Prednisone (Deltasone -) 5 mg PO DAILY [facility] Last Admin: 04/23/19 09:50 Dose: 5 mg Tacrolimus (Prograf) 2 mg PO BID [facility] Last Admin: 04/23/19 09:51 Dose: 2 mg Tamsulosin HCl (Flomax -) 0.4 mg PO DAILY@0830 [facility] Last Admin: 04/23/19 08:43 Dose: 0.4 mg - Objective Vital Signs: Vital Signs Temperature 98.1 F 04/23/19 06:00 Pulse Rate 69 04/23/19 06:00 Respiratory Rate 18 04/23/19 06:00 Blood Pressure 135/77 04/23/19 06:00 O2 Sat by Pulse Oximetry (%) 99 04/22/19 21:00 Constitutional: Yes: No Distress Eyes: Yes: Conjunctiva Clear Cardiovascular: Yes: Regular Rate and Rhythm, S1, S2 Respiratory: Yes: CTA Bilaterally Gastrointestinal: Yes: Normal Bowel Sounds, Soft, Other (+ OSTOMY) Extremities: Yes: Other (MINIMAL ERYTHEMA OVER R ELBOW NO TENDERNESS/ FLUCTUANCE) Labs: CBC, BMP 04/23/19 06:45 04/23/19 06:45 INR, PTT INR 1.15 (0.83-1.09) H 04/21/19 00:35 Assessment/Plan CELLULITIS R ELBOW ? OLECRANNON BURSITIS MAY SUBSTITUTE KEFLEX 500MG PO QID ADDITIONAL 5D OUTPATIENT F/U
--- NOTE | 2019-04-23 13:49 | DS ---
Physical Exam: SUBJECTIVE: Patient seen and examined, right elbow symptoms markedly improved, no fevers/chills. Eager to go home. OBJECTIVE: Vital Signs Period Temp Pulse Resp BP Sys/Valdes Pulse Ox Last 24 Hr 97.9 F-98.7 F 69-78 16-18 124-137/77-87 99 PHYSICAL EXAM General: sitting in bed in no acute distress CVS: S1S2 regular Chest: CTAB, no rales or wheezing Abdomen:soft, NT, ND, no CVA or suprapubic tenderness extremities: resolved red streaks on forearm, improved marked swelling/erythema below right elbow, pos pulses, full ROM active and passive Psych: pleasant, co-operative SKIN: Warm, dry, normal turgor, no rashes or lesions noted. LABS Laboratory Results - last 24 hr 04/22/19 04/22/19 04/23/19 17:24 22:08 06:44 WBC RBC Hgb Hct MCV MCH MCHC RDW Plt Count MPV Absolute Neuts (auto) Neutrophils % Lymphocytes % Monocytes % Eosinophils % Basophils % Nucleated RBC % Sodium Potassium Chloride Carbon Dioxide Anion Gap BUN Creatinine Est GFR (CKD-EPI)AfAm Est GFR (CKD-EPI)NonAf POC Glucometer 194 194 133 Random Glucose Calcium Phosphorus Magnesium Total Bilirubin AST ALT Alkaline Phosphatase Total Protein Albumin 04/23/19 04/23/19 04/23/19 06:45 06:45 12:02 WBC 4.6 RBC 3.62 L Hgb 10.6 L Hct 32.2 L MCV 89.0 MCH 29.3 MCHC 32.9 RDW 15.4 Plt Count 140 MPV 10.3 Absolute Neuts (auto) 2.7 Neutrophils % 57.6 Lymphocytes % 22.1 D Monocytes % 12.6 H Eosinophils % 6.9 H Basophils % 0.8 Nucleated RBC % 0 Sodium 139 Potassium 4.6 Chloride 111 H Carbon Dioxide 21 Anion Gap 7 L BUN 13.9 Creatinine 0.9 Est GFR (CKD-EPI)AfAm 111.83 Est GFR (CKD-EPI)NonAf 96.49 POC Glucometer 219 Random Glucose 139 H Calcium 7.9 L Phosphorus 2.3 L Magnesium 2.1 Total Bilirubin 0.4 AST 27 ALT 46 Alkaline Phosphatase 338 H Total Protein 6.2 L Albumin 2.5 L Microbiology 04/21/19 00:35 Blood - Peripheral Venous Blood Culture - Preliminary NO GROWTH OBTAINED AFTER 48 HOURS, INCUBATION TO CONTINUE FOR 3 DAYS. 04/21/19 00:35 Blood - Peripheral Venous Blood Culture - Preliminary NO GROWTH OBTAINED AFTER 48 HOURS, INCUBATION TO CONTINUE FOR [address] Upper extremity: There is no evidence of fracture, dislocation or acute bone or joint abnormalities. There are no destructive changes suspicious for acute osteomyelitis. There is no evidence of a joint effusion that may indicate septic arthritis. There is soft tissue swelling and extensive edema within the subcutaneous tissues posterior to the elbow joint. This is in the region of the olecranon bursa and may represent bursitis. There are also soft tissue calcifications in this area of uncertain etiology. This may indicate a more chronic process. There is heavy vascular calcification within the arterial structures of the upper extremity. This may be related to chronic renal failure. Clinical correlation is advised. IMPRESSION: 1. No significant joint effusion suggesting septic arthritis. 2. No evidence of fracture, dislocation or acute osteomyelitis. 3. Soft tissue swelling and subcutaneous edema posterior to the elbow joint in the region of the olecranon bursa. There are also soft tissue calcifications in this location. Clinical correlation and follow-up recommended. Please see above discussion. HOSPITAL COURSE: Date of Admission:04/21/19 Date of Discharge: 04/23/19 Minutes to complete discharge: 40 Discharge Summary Reason For Visit: STATUS POST LIVER TRANSPLANTATION, S/P KIDNEY Current Active Problems Cellulitis of elbow (Acute) Fever (Acute) Liver transplanted (Acute) Renal transplant, status post (Acute) Hospital Course: 53 yom with PMhx of UC, PSC, liver transplant x4, first in 1992, last in 2016 with renal transplant, admitted with progressive swelling/redness of right elbow region. He was afebrile with normal WBC. He had CT upper extremity as above, with soft tissue swelling but no joint involvement, abscess or septic arthritis. Orthopedic, infectious disease and nephrology were consulted. He had mild LEVI, that resolved with hydration. He was continued on his immunosupressants. he will be discharged on stable condition on keflex for additional 5 days per infectious disease recommendations. Condition: Stable - Instructions Diet, Activity, Other Instructions: You were admitted with infection below elbow and improved on antibiotics. You also had mildly abnormal kidney function that normalized with hydration You were seen by orthopedic, infectious disease and shuttler car. MEDICATIONS: Keflex 500 mg 4 times daily for 5 days Continue home medications as before. INSTRUCTIONS: Ensure to maintain adequate hydration FOLLOW UP: With your primary care doctor in 1 week With shuttler car in 1 week if you notice any fevers, worsening elbow redness, pain, inability to move right elbow, or any new concerns, please call 911 or come to ED immediately. Disposition: HOME - Home Medications Comprehensive Discharge Medication List: Ambulatory Orders Alendronate Sodium [Binosto] 70 mg PO WEEKLY 04/21/19 Aspirin [Aspirin EC] 81 mg PO DAILY 04/21/19 Calcium Citrate/Vitamin D3 [Calcium Cit-Vit D 250-200 Tab] 1 tablet PO BID 04/21 Ergocalciferol (Vitamin D2) [Vitamin D2] 50,000 unit PO WEEKLY 04/21/19 Esomeprazole Magnesium [Nexium 24Hr] 20 mg PO DAILY 04/21/19 Ferrous Sulfate 325 mg PO TID 04/21/19 Insulin Detemir [Levemir Flextouch] 17 unit SQ HS 04/21/19 Melatonin 10 mg PO PRN 04/21/19 Mycophenolate Mofetil 500 mg PO BID 04/21/19 Prednisone 5 mg PO DAILY 04/21/19 Sildenafil Citrate [Viagra] 25 mg PO PRN PRN 04/21/19 Sulfamethoxazole/Trimethoprim [Bactrim DS -] 1 tab PO DAILY 04/21/19 Tacrolimus 2 mg PO BID 04/21/19 Tamsulosin HCl 0.4 mg PO DAILY 04/21/19 Zolpidem Tartrate [Ambien] 5 mg PO PRN PRN 04/21/19 metFORMIN HCL [Metformin HCl] 10 ml PO BID 04/21/19 Cephalexin [Keflex] 500 mg PO QID #20 capsule 04/23/19 This patient is new to me today: No Emergency Visit: Yes ED Registration Date: 04/21/19 Care time: The patient presented to the Emergency Department on the above date and was hospitalized for further evaluation of their emergent condition. Critical Care patient: No - Discharge Referral Referred to [facility] Med P.C.: No
[2019-04-23 14:43] VITALS: BP 118/76; PULSE 80; TEMP 98
[2019-04-23] MEDS: VANCOMYCIN 1 GRAM (PRE-DOCKED) 1,000 MG/250 ML BAG IVPB SCH (14:47)
== END 2019-04-23 19:10 | disposition home or self-care (01) | DRG 383 ==
LOC: JER 21:35 → JERBED 04-21 02:14 → J7W 04-21 16:02
PROVIDERS: ADMIT Internal Medicine; ATTEND Hospitalist
DX: L03.113 Cellulitis of right upper limb (principal); Z94.4 Liver transplant status; I42.9 Cardiomyopathy, unspecified; Z94.0 Kidney transplant status; E88.09 Other disorders of plasma-protein metabolism, not elsewhere classified; N18.3 Chronic kidney disease, stage 3 (moderate); Z79.4 Long term (current) use of insulin; E11.9 Type 2 diabetes mellitus without complications; I10 Essential (primary) hypertension; Z96.653 Presence of artificial knee joint, bilateral; Z93.3 Colostomy status; N40.0 Benign prostatic hyperplasia without lower urinary tract symptoms; Z88.0 Allergy status to penicillin; E66.9 Obesity, unspecified; Z68.33 Body mass index [BMI] 33.0-33.9, adult; Z79.84 Long term (current) use of oral hypoglycemic drugs; M10.9 Gout, unspecified; N20.0 Calculus of kidney
CPT/HCPCS: 36415; 73070-TC-RT-FY; 73200-TC-RT; 80048; 80053; 80076; 80197; 82962; 83605; 83735; 84100; 84550; 85025; 85610; 87040; 99284-25; G0480; J1644; J7030; J7517

== ENCOUNTER 2020-09-02 17:26 | Emergency (ER) | payer OTHER, BC ==
[2020-09-02 17:59] VITALS: BMI 34.1
[2020-09-02 20:11] LABS: BASO % 0.8 % (0-2.0); EOS % 1.7 % (0-4.5); HEMATOCRIT 40.2 % (35.4-49); HEMOGLOBIN 13.4 GM/dL (11.7-16.9); LYMPH % 25.6 % (8-40); MCH 29.1 pg (25.7-33.7); MCHC 33.4 g/dl (32.0-35.9); MEAN PLT VOLUME 10.4 fl (7.5-11.1); MONO % 9.6 % (3.8-10.2); NEUT % 62.3 % (42.8-82.8); PLATELET COUNT 189 K/MM3 (134-434); RBC 4.62 M/mm3 (4.00-5.60); RDW 14.8 % (11.9-15.9); WHITE BLOOD COUNT 7.4 K/mm3 (4.0-10.0)
[2020-09-02 20:28] LABS: CHLORIDE 97 mmol/L (98-107); POTASSIUM 4.6 mmol/L (3.5-5.1); SODIUM 129 mmol/L (136-145)
[2020-09-02 20:30] LABS: CALCIUM 10.2 mg/dL (8.5-10.1)
[2020-09-02 20:31] LABS: ALBUMIN 3.3 g/dl (3.4-5.0); ANION GAP 9 MMOL/L (8-16); BLOOD UREA NITROGEN 38.1 mg/dL (7-18); CO2 23 mmol/L (21-32)
[2020-09-02 20:34] LABS: CREATININE 2.3 mg/dL (0.55-1.3); SGOT/AST 13 U/L (15-37); SGPT/ALT 27 U/L (13-61)
[2020-09-02 20:36] LABS: BILIRUBIN,TOTAL 0.5 mg/dL (0.2-1); TOT PROT 7.2 g/dl (6.4-8.2)
[2020-09-02 20:37] LABS: ALK PHOS 207 U/L (45-117)
[2020-09-02 20:54] LABS: GLUCOSE,RANDOM 492 mg/dL (74-106)
[2020-09-02 21:58] VITALS: BP 132/83; PULSE 86; TEMP 98.3
== END 2020-09-02 22:02 | disposition left against medical advice (07) ==
LOC: JER 17:26
DX: R07.9 Chest pain, unspecified (principal); N17.9 Acute kidney failure, unspecified; E11.65 Type 2 diabetes mellitus with hyperglycemia
CPT/HCPCS: 36415; 80053; 84443; 84484; 85025; 93005; 93010; 99285-25

== ENCOUNTER 2021-07-23 01:19 | Emergency (ER) | payer OTHER, BC ==
[2021-07-23 02:02] VITALS: BMI 27.3
[2021-07-23] MEDS ORDERED: LACTATED RINGERS SOLUTION 1000 ML INFUS.BAG IV ONE (03:30)
[2021-07-23] MEDS ORDERED: ACETAMINOPHEN 1000 MG/100 ML VIAL IVPB ONE (03:30)
[2021-07-23] MEDS ORDERED: ONDANSETRON 4 MG/2 ML VIAL IVPUSH ONE ×2 (03:31→08:50)
[2021-07-23] MEDS ORDERED: ONDANSETRON 4 MG/2 ML VIAL ONE ×2 (03:53→08:55)
[2021-07-23] MEDS ORDERED: ACETAMINOPHEN INJECTION 100 ML IVPB ONE (03:53)
[2021-07-23 04:49] LABS: BASO % 0.4 % (0-2.0); EOS % 1.5 % (0-4.5); HEMATOCRIT 44.6 % (35.4-49); HEMOGLOBIN 15.1 GM/dL (11.7-16.9); LYMPH % 17.3 % (8-40); MCH 28.8 pg (25.7-33.7); MCHC 33.9 g/dl (32.0-35.9); MEAN PLT VOLUME 10.5 fl (7.5-11.1); MONO % 8.8 % (3.8-10.2); PLATELET COUNT 179 10^3/uL (134-434); RBC 5.24 M/mm3 (4.00-5.60); RDW 14.9 % (11.9-15.9); WHITE BLOOD COUNT 9.5 K/mm3 (4.0-10.0)
[2021-07-23 04:59] LABS: INR 1.12 (0.83-1.09); PROTHROMBIN TIME (PATIENT) 12.6 SEC (9.7-13.0)
[2021-07-23 05:01] LABS: ACTIVATED PTT 28.2 SECONDS (25.2-36.5)
[2021-07-23 05:07] LABS: CHLORIDE 101 mmol/L (98-107); SODIUM 134 mmol/L (136-145)
[2021-07-23 05:09] LABS: CALCIUM 10.2 mg/dL (8.5-10.1)
[2021-07-23 05:10] LABS: ALBUMIN 3.1 g/dl (3.4-5.0); ANION GAP 13 MMOL/L (8-16); BLOOD UREA NITROGEN 45.3 mg/dL (7-18); CO2 20 mmol/L (21-32); GLUCOSE,RANDOM 253 mg/dL (74-106); LIPASE 111 U/L (73-393)
[2021-07-23 05:13] LABS: CREATININE 2.7 mg/dL (0.55-1.3); SGOT/AST 35 U/L (15-37); SGPT/ALT 43 U/L (13-61)
[2021-07-23 05:14] LABS: BILIRUBIN,TOTAL 0.7 mg/dL (0.2-1); TOT PROT 7.5 g/dl (6.4-8.2)
[2021-07-23 05:16] LABS: ALK PHOS 179 U/L (45-117)
[2021-07-23] MEDS ORDERED: morphine CARPU-JECT 4 MG/1 ML DISP.SYRIN IVPUSH ONE (05:28)
[2021-07-23] MEDS ORDERED: morphine SULFATE 4 MG/ML VIAL ONE (05:34)
[2021-07-23 05:36] LABS: LACTIC ACID 2.6 mmol/L (0.4-2.0)
[2021-07-23 08:14] LABS: URINE APPEARANCE CLEAR; URINE BILIRUBIN 1+ (NEGATIVE); URINE COLOR DK YELLOW; URINE GLUCOSE (UA) NEGATIVE (NEGATIVE); URINE KETONE TRACE (NEGATIVE); URINE LEUK ESTERASE NEGATIVE (NEGATIVE); URINE NITRITE NEGATIVE (NEGATIVE); URINE PROTEIN TRACE (NEGATIVE)
[2021-07-23] MEDS ORDERED: HYDROmorphone HCL CARPU-JECT 2 MG/1 ML DISP.SYRIN IVPB ONE (08:50)
[2021-07-23] MEDS ORDERED: HYDROmorphone HCl 2 MG/ML VIAL ONE (08:55)
[2021-07-23] MEDS ORDERED: LACTATED RINGERS SOLUTION 1,000 ML/1,000 ML INFUS.BAG IV SCH (09:30)
[2021-07-23 13:00] VITALS: PULSE 82; TEMP 98.6
[2021-07-23 13:06] VITALS: BP 116/76
== END 2021-07-23 13:30 | disposition short-term general hospital (02) ==
LOC: JER 01:19 → JERBED 06:48 → UNDOADMIN 06:48 → JER 13:30
PROC: 3E0333Z Introduction of Anti-inflammatory into Peripheral Vein, Percutaneous Approach (ICD-10-PCS; principal; 2021-07-23)
PROC: 3E033GC Introduction of Other Therapeutic Substance into Peripheral Vein, Percutaneous Approach (ICD-10-PCS; 2021-07-23)
PROC: 3E033GC Introduction of Other Therapeutic Substance into Peripheral Vein, Percutaneous Approach (ICD-10-PCS; 2021-07-23)
PROC: 3E033NZ Introduction of Analgesics, Hypnotics, Sedatives into Peripheral Vein, Percutaneous Approach (ICD-10-PCS; 2021-07-23)
PROC: 3E033GC Introduction of Other Therapeutic Substance into Peripheral Vein, Percutaneous Approach (ICD-10-PCS; 2021-07-23)
PROC: 3E033GC Introduction of Other Therapeutic Substance into Peripheral Vein, Percutaneous Approach (ICD-10-PCS; 2021-07-23)
DX: R10.9 Unspecified abdominal pain (principal)
CPT/HCPCS: 36415; 71045-TC-FY; 74176-TC; 80053; 81003; 82962; 83605; 83690; 84484; 85025; 85610; 85730; 87045; 87046; 87086; 87186; 87324; 87449; 93005; 93010; 99285-25; C9803; J0131; U0003; U0005